=== PATIENT | male | born 1965 | race Caucasian/White ===

== ENCOUNTER 2019-04-20 05:09 | Emergency (ER) | payer SELFPAY ==
[2019-04-20 05:10] VITALS: BP 129/87; PULSE 68; RESP 16; TEMP 36.4; O2SAT 100; BMI 23.6
--- NOTE | 2019-04-20 05:24 | ED.VISSUMM ---
- ER Visit Summary Date of Service: 04/20/19 Chief Complaint: Back pain History of Present Illness: The patient is a 53 M who presents with back pain. This is been occurring intermittently for about 2 weeks but has been worse since yesterday. His pain is all isolated to the left lower back. He denies any numbness tingling weakness radiation to the legs fever abdominal pain urinary retention or fecal incontinence. No history of fall, trauma, injury. He takes Lyrica as a home medication but has not tried any other medications at home. He has tried ice and heat with mild relief. Physical Examination: Afebrile vitals unremarkable Moist mucous membranes Heart regular rate and rhythm Lungs are clear Abdomen soft nontender nondistended Patient has left lower paraspinal back tenderness and point tenderness over the SI joint Normal strength and sensation of the lower extremities with 5 out of 5 dorsiflexion, plantarflexion, EHL Test Results: Not indicated Emergency Department Course and Treatment: Given no trauma I do not believe x-rays will be of any benefit at this time. He was advised on supportive care. He was given a prescription for naproxen. He was also given a prescription for a short course of [place]. He was advised to follow-up as an outpatient. He understands to return for new or worsening symptoms. Patient discharged. Treatment Plan: [] Disposition: Discharge Impression: Lumbosacral strain This note was generated with [employer] dictation software. It may contain incorrect words, spelling, and punctuation that were not noted in review of the chart prior to signing ED Disposition - Plan for ED Patient: Referrals: Alphonse Roberts MD [Primary Care Provider] -
--- NOTE | 2019-04-20 05:27 | DCINST.ED_ITS ---
ED Disposition - Plan for ED Patient: Instructions: Back Sprain/Strain Prescriptions: Naproxen [Naprosyn] 500 mg PO BID #20 tab Prescription Printed Hydrocodone Bitart/Apap 5-325 [[place] 5MG-325MG] 1 tab PO Q6H PRN PRN 2 Days #8 tab PRN Reason: Pain Prescription Printed Referrals: Alphonse Roberts MD [Primary Care Provider] -
[2019-04-20] MEDS: HYDROcodone Bitartrate/Apap 5/325 Tablet PO (05:40)
[2019-04-20 05:49] VITALS: RESP 16
== END 2019-04-20 05:49 | disposition home or self-care (01) ==
LOC: ED 05:35
PROVIDERS: Emergency Provider Emergency Medicine; Family Provider Family Medicine; PCP Family Medicine
DX: S39.012A Strain of muscle, fascia and tendon of lower back, initial encounter (principal); X58.XXXA Exposure to other specified factors, initial encounter
CPT/HCPCS: 99283

== ENCOUNTER 2019-12-12 10:11 | Emergency (ER) | payer BC, SELFPAY ==
[2019-12-12 10:12] VITALS: BP 140/93; PULSE 85; RESP 17; TEMP 36.6; O2SAT 98; BMI 23.1
[2019-12-12] MEDS: Doxycycline 100 MG CAPSULE PO (11:00)
--- NOTE | 2019-12-12 12:22 | ED.VISSUMM ---
- ER Visit Summary Date of Service: 12/12/19 Chief Complaint: Left index finger pain and swelling History of Present Illness: The patient is a 54 M who presents with left index finger pain and swelling that is been getting worse over the past 5 days. Patient states he accidentally cut himself with a razor knife 5 days ago. Patient states the pain is been getting progressively worse. Patient admits to some purulent drainage from the wound. Patient describes his pain as throbbing. Patient states pain is over the distal phalanx of the left index finger. Patient states the pain improves when he massages his finger. Physical Examination: Vital signs are stable. Patient is afebrile. Patient is in no acute distress. Extremities are intact. There is tenderness, edema, and fluctuance over the pad of the distal phalanx of the left index finger. There is no open wound at the tip of the left index finger. There is some mild purulent drainage noted from this area. Sensation was intact to light touch in all digits. Capillary refill was less than 2 seconds in all digits. There is full range of motion of all digits. Skin is warm and dry. There is an impetigo type rash on his face and bilateral upper extremities. There is no active discharge or drainage. There are no vesicles or bullae noted. There is some honey crusting around the lesions. Emergency Department Course and Treatment: Patient was given a dose of doxycycline here. Patient was given a prescription for doxycycline. The left index finger was cleaned and anesthetized 1% lidocaine via digital block. A #11 blade was used to make a linear incision from the tip of the distal phalanx to the pad. There is mild amount of purulent drainage noted. The wound was probed. Loculations were broken up. The wound was irrigated. The wound was left open. Bacitracin dressing was applied. Patient was instructed to follow-up with his primary care physician in 3 to 5 days. Patient understood and was agreeable with the plan. All questions were answered. Disposition: Discharge home Impression: 1. Felon left index finger 2. Impetigo This note was generated with [employer] software. It may contain incorrect words, spelling, and punctuation that were not noted in review of the chart prior to signing ED Disposition - Plan for ED Patient: Disposition: Home or Assisted Living Diagnosis: Felon of finger of left hand, Impetigo Instructions: ABSCESS, Incision and Drainage Prescriptions: Doxycycline 100 mg PO BID #20 cap Prescription Printed Referrals: Alphonse Roberts MD [Primary Care Provider] - 3-5 Days
--- NOTE | 2019-12-12 12:50 | ED.RN ---
DISCHARGE INSTRUCTIONS GIVEN TO AND REVIEWED WITH PATIENT, PATIENT DENIES QUESTIONS OR CONCERNS AND VOICES UNDERSTANDING OF DISCHARGE INSTRUCTIONS. PT AMBULATES OUT OF ROOM WITHOUT DIFFICULTY.
== END 2019-12-12 12:51 | disposition home or self-care (01) ==
PROVIDERS: Emergency Provider Emergency Medicine; PCP Family Medicine
DX: L03.012 Cellulitis of left finger (principal); L01.00 Impetigo, unspecified; M79.7 Fibromyalgia; F17.200 Nicotine dependence, unspecified, uncomplicated
CPT/HCPCS: 26011; 10060; 99283

== ENCOUNTER 2020-04-27 08:53 | Emergency (ER) | payer BC, SELFPAY ==
[2020-04-27 08:53] VITALS: BP 119/78; PULSE 80; RESP 16; TEMP 36.4; O2SAT 98; BMI 22.5
--- NOTE | 2020-04-27 09:17 | ED.VIS.GEN ---
History of Present Illness Chief Complaint: Cellulitis Informant: Patient Onset: Days - 3 days Context: Gradual Onset Timing: Continuous Quality: Pain redness swelling Location: Right foot Current Severity: Severe Maximum Severity: Severe Worsened by: Movement and palpation Relieved by: Nothing Associated Symptoms: Denies Narrative: 54-year-old male presents with pain redness and swelling of his right foot that is been worsening over the last 3 days. He went to his primary yesterday who started him on Bactrim. He is taking 2 doses. He has not had any improvement. No fevers. No trauma. No numbness or tingling. No weakness. He denies history of gout. He states he is not a diabetic. He denies any other review of systems. Prior similar symptoms: No Recent Illness/Hospitalization: No Past Medical History - Allergies and Home Meds Allergies/Adverse Reactions: Allergies Penicillins Adverse Reaction (Verified 04/27/20 08:55) Vomiting sulfamethoxazole [From Bactrim] Adverse Reaction (Verified 04/27/20 08:55) Vomiting trimethoprim [From Bactrim] Adverse Reaction (Verified 04/27/20 08:55) Vomiting Primary Care Physician: Alphonse Roberts MD [Primary Care Provider] - Prior records reviewed: Yes Past Medical History: - - COPD Surgical History: - - hernia. tonisllectomy. Smoking Status: Current every day smoker Alcohol: Occasional Drugs: None Review of Systems All systems negative except as indicated General: Denies: Chills, Fever, Sweats Eyes: Denies: Visual changes - bilaterally, Diplopia ENT: Denies: Rhinorrhea, Sore throat Cardiovascular: Denies: Chest pain, Palpitations Respiratory: Denies: Dyspnea, Cough, Dyspnea on exertion Gastrointestinal: Denies: Abdominal pain, Nausea, Vomiting, Diarrhea, Melena, Hematochezia Genitourinary: Denies: Dysuria, Hematuria, Frequency Musculoskeletal: Reports: Swelling, Extremity Pain. Denies: Back pain Skin: Reports: Abscess. Denies: Rash, Abrasions, Wounds Neurological: Denies: Headache, Weakness, Numbness Physical Exam Vital Signs/Narrative: Vital Signs Temp Pulse Resp BP Pulse Ox 04/27/20 08:53 97.5 F L 80 16 119/78 98 Inital Vital Signs reviewed: Yes General: Well nourished, Well developed, No Acute Distress Head: Normocephalic, Atraumatic Eyes: Perrl, EOMI ENT: Moist mucous membranes, No rhinorrhea Neck: Supple, Nontender Cardiovascular: Regular rate, Regular rhythm, No murmurs Respiratory: No distress, CTA bilaterally, Chest nontender Abdomen: Soft, Nontender, Nondistended, Normal bowel sounds Back: Nontender, Normal Inspection Extremities: - - Patient has what appears to be an early abscess at the base of his right fifth toe. There is no fluctuance but it is indurated. He has swelling redness and warmth noted on the lateral aspect of his foot but it does not extend proximal to the mid foot. He has normal capillary refill and sensation of all 5 toes. He has normal active range of motion of all 5 toes. He is able to plantarflex and dorsiflex normally. DP and PT pulses are normal. Compartment of the leg is soft. There is no lymphatic streaking noted. There are no visualized ulcers between the toes or on the plantar aspect of the foot. Skin: Normal color, No rash Neurological: Alert, Oriented x3, Cranial nerves II-XII grossly intact, Normal Strength, Normal Sensation Psychological: Normal affect, Normal Mood Diagnostic/Tx/Re-eval Impressions Foot X-Ray 04/27/20 09:35 IMPRESSION: Soft tissue swelling. Electronically Signed: Kar Adam, at 9:59 EDT , Service support , 04/27/20 09:35 Xray Foot [Foot min 3 Views] [RAD] Stat Laboratory Results 04/27/20 04/27/20 09:26 09:26 WBC 9.5 RBC 3.83 L Hgb 12.6 L Hct 36.3 L MCV 94.8 H MCH 32.9 H MCHC 34.7 RDW Std Deviation 43.1 RDW Coeff of Annie 12.4 Plt Count 175 MPV 10.5 Immature Gran % (Auto) 0.400 Neut % (Auto) 81.6 H Lymph % (Auto) 8.2 L [place] % (Auto) 6.6 Eos % (Auto) 2.9 Baso % (Auto) 0.3 Absolute Neuts (auto) 7.8 H Absolute Lymphs (auto) 0.78 L Nucleated RBC % 0 ESR 6 Sodium 142 Potassium 3.8 Chloride 111 H Carbon Dioxide 30.0 Anion Gap 1 L BUN 17 Creatinine 0.82 Estim Creat Clear Calc 95.14 Est GFR (MDRD) Af Amer 125 Est GFR (MDRD) Non-Af 103 BUN/Creatinine Ratio 20.6 H Glucose 88 Calcium 8.2 L C-React Prot Ext Range 15.50 H - Medical Decision Making Patient's pain was treated with oxycodone. Laboratory work-up included CBC BMP were unremarkable. His CRP was 13. X-ray showed soft tissue swelling without acute finding. I discussed with patient at this time I feel he has an early abscess. We will start him on Keflex and he will continue his Bactrim. He was given a short course of Percocet. He was encouraged to have a 48-hour wound check with his doctor or return to the emergency department. At this time there is no sign of ulceration his x-ray did not show evidence of gout and we feel this is an early abscess with cellulitis. ED Disposition - Plan for ED Patient: Disposition: Home or Assisted Living Diagnosis: Cellulitis of fifth toe of right foot Instructions: Cellulitis Prescriptions: Cephalexin [Keflex] 500 mg PO Q6 #40 cap Prescription Printed Oxycodone HCl/Acetaminophen [Percocet 5/325] 1 tab PO Q6H PRN PRN 3 Days #12 tab PRN Reason: Pain Prescription Printed Referrals: Alphonse Roberts MD [Primary Care Provider] -
[2020-04-27 09:27] VITALS: BP 119/78; PULSE 80; RESP 16; TEMP 36.4; O2SAT 98
[2020-04-27] MEDS: oxyCODONE 5 MG Tablet PO (09:33)
--- NOTE | 2020-04-27 09:35 | RAD_ITS ---
STUDY: X-RAY - RIGHT FOOT CLINICAL: Male, 54 years old. INFECTION OF RIGHT FOOT, MORE ON LATERAL SIDE NEAR PINKY TOE TECHNIQUE: 3 view(s) of the foot. COMPARISON: None. FINDINGS: Normal talus, calcaneus, and tarsal bones. Normal visualized subtalar, talonavicular, calcaneocuboid, tarsal and tarsometatarsal articulations. Normal metatarsi. Normal metatarsophalangeal joint of the great toe. Normal tibial and fibular sesamoid bones. Normal interphalangeal joint of the great toe. Normal phalanges of the great toe. Normal second through fifth metatarsophalangeal joints. Normal interphalangeal joints and phalanges of the lesser toes. Soft tissue swelling. RAD/Foot min 3 Views IMPRESSION: Soft tissue swelling. Electronically Signed: Kar Medina, at 9:59 EDT , Service support ,
[2020-04-27 09:36] LABS: Erythrocyte Sedimentation Rate 6 mm/hr (0-20)
[2020-04-27 09:37] LABS: Absolute Lymphocyte Count 0.78 X10^3/uL (0.83-4.51); Absolute Neutrophil Count 7.8 X10^3/uL (2.0-7.7); Basophil# 0.03 X10^3/uL; Basophil% 0.3 % (0-1); Eosinophil# 0.28 X10^3/uL; Eosinophils% 2.9 % (0-5); Hematocrit 36.3 % (40-54); Hemoglobin 12.6 g/dL (13.0-16.5); Lymphocyte # 0.78 X10^3/ul (4.0); Lymphocyte % 8.2 % (19-41); Mean Corp Hgb Conc 34.7 g/dL (32-36); Mean Corpuscular Hgb 32.9 pg (27.0-32.0); Mean Corpuscular Volume 94.8 fL (80-94); Mean Platelet Vol. 10.5 fl (6.2-12.0); Monocyte# 0.63 X10^3/uL; Monocyte% 6.6 % (0-10); NRBC Flagged by Analyzer 0 % (0-5); Neutrophil # 7.77 X10^3/uL (2.7-7.7); Neutrophil % 81.6 % (47-70); Platelet Count 175 K/mm3 (150-450); RBC Distribution Width CV 12.4 % (11.6-14.6); RBC Distribution Width SD 43.1 fl (35.1-43.9); Red Blood Count 3.83 M/mm3 (4.6-6.2); White Blood Count 9.5 K/mm3 (4.4-11.0)
[2020-04-27 09:49] LABS: Anion Gap 1 (5-15); BUN 17 mg/dL (7-18); BUN/Creat Ratio 20.6 RATIO (10-20); Calcium,Total 8.2 mg/dL (8.5-10.1); Chloride 111 mmol/L (98-107); Creatinine, Serum 0.82 mg/dL (0.70-1.30); EST Glomerular Filtration Rate 103 mL/min (>60); Est Glom Filt Rate - Afr Amer 125 mL/min (>60); Estimated Creatinine Clearance 95.14 ml/min; Glucose 88 mg/dL (74-106); Potassium 3.8 mmol/L (3.5-5.1); Sodium Level 142 mmol/L (136-145)
[2020-04-27 10:13] VITALS: BP 126/76; PULSE 56; RESP 16; O2SAT 100
== END 2020-04-27 10:34 | disposition home or self-care (01) ==
PROVIDERS: Emergency Provider Physician Assistant Medical; PCP Family Medicine
DX: L03.031 Cellulitis of right toe (principal); J44.9 Chronic obstructive pulmonary disease, unspecified; F17.200 Nicotine dependence, unspecified, uncomplicated; Z88.0 Allergy status to penicillin; Z88.1 Allergy status to other antibiotic agents; Z88.2 Allergy status to sulfonamides
CPT/HCPCS: 73630; 80048; 85025; 85652; 86140; 99284; A4216

== ENCOUNTER 2020-04-29 12:24 | Inpatient (IN) | payer BC, SELFPAY ==
[2020-04-29] VITALS (7 sets, daily range): BP systolic 114–125; BP diastolic 64–76; PULSE 70–82; RESP 16–18; TEMP 36.7–37.1; O2SAT 97–99; BMI 22.5; BMI 22.6
--- NOTE | 2020-04-29 12:42 | RAD_ITS ---
STUDY: X-RAY - RIGHT FOOT CLINICAL: Male, 54 years old. infection, right foot TECHNIQUE: 3 view(s) of the foot. COMPARISON: 04/27/2020 FINDINGS: Normal talus, calcaneus, and tarsal bones. Normal visualized subtalar, talonavicular, calcaneocuboid, tarsal and tarsometatarsal articulations. Normal metatarsi. Normal metatarsophalangeal joint of the great toe. Normal tibial and fibular sesamoid bones. Normal interphalangeal joint of the great toe. Normal phalanges of the great toe. Normal second through fifth metatarsophalangeal joints. Normal interphalangeal joints and phalanges of the lesser toes. Soft tissue swelling fifth digit. No subcutaneous gas or radiodense foreign body. RAD/Foot min 3 Views IMPRESSION: Soft tissue swelling fifth digit Electronically Signed: Bryan Reid MD at 13:27 EDT , Service support ,
--- NOTE | 2020-04-29 12:45 | ED.DCSUM_ITS ---
- ER Visit Summary Date of Service: 04/29/20 Chief Complaint: Redness and swelling to right foot [] History of Present Illness: The patient is a 54 M [presents to the emergency department with redness and swelling to his foot that started about 5 days ago. Patient apparently was started on Bactrim about 5 days ago and then presented to the emergency department 2 days ago and started on Keflex as well. Patient states that yesterday he had an area over his right fifth toe that opened up and started draining purulent material. He has had some chills and sweats but no known fever. Patient continues to be concerned about his foot. He denies any trauma to his foot leading to this. Patient thinks that it looked somewhat bruised initially. Patient has otherwise no medical history. Patient is penicillin allergy.] Physical Examination: [HEENT-PERRLA, EOMI. Cranial nerves II through XII grossly intact. TMs clear. Mucous membranes moist. No adenopathy. Cardiovascular-regular rate and rhythm without murmur or ectopy Lungs-clear to auscultation, chest wall stable without crepitus or subcu emphysema Abdomen-normoactive bowel sounds, soft, nontender, no rebound or rigidity, no peritoneal signs. Extremities-intact ?4, normal range of motion, normal pulses. Right foot- patient has a diffusely swollen red foot. At the base of the fifth toe dorsally he has an area measuring approximately 2 cm in diameter that is opened up and draining some purulent debris. He is got surrounding erythema and cellulitis. Patient has diffuse tenderness over the lateral aspect of the plantar aspect of the foot and dorsal aspect of the foot. Neurovascularly intact.] Test Results: [] Emergency Department Course and Treatment: [] Treatment Plan: [] Disposition: [] Impression: [] This note was generated with [employer] dictation software. It may contain incorrect words, spelling, and punctuation that were not noted in review of the chart prior to signing ED Disposition - Plan for ED Patient: Referrals: Alphonse Roberts MD [Primary Care Provider] -
[2020-04-29 13:12] LABS: Absolute Lymphocyte Count 0.97 X10^3/uL (0.83-4.51); Absolute Neutrophil Count 3.2 X10^3/uL (2.0-7.7); Basophil# 0.03 X10^3/uL; Basophil% 0.6 % (0-1); Eosinophil# 0.17 X10^3/uL; Eosinophils% 3.5 % (0-5); Hematocrit 37.7 % (40-54); Lymphocyte # 0.97 X10^3/ul (4.0); Lymphocyte % 20.2 % (19-41); Mean Corp Hgb Conc 34.5 g/dL (32-36); Mean Corpuscular Hgb 32.7 pg (27.0-32.0); Mean Platelet Vol. 10.5 fl (6.2-12.0); Monocyte# 0.37 X10^3/uL; Monocyte% 7.7 % (0-10); NRBC Flagged by Analyzer 0 % (0-5); Neutrophil # 3.24 X10^3/uL (2.7-7.7); Neutrophil % 67.6 % (47-70); Platelet Count 198 K/mm3 (150-450); RBC Distribution Width CV 12.3 % (11.6-14.6); RBC Distribution Width SD 43.1 fl (35.1-43.9); Red Blood Count 3.97 M/mm3 (4.6-6.2); White Blood Count 4.8 K/mm3 (4.4-11.0)
[2020-04-29 13:22] LABS: Anion Gap 4 (5-15); BUN 14 mg/dL (7-18); BUN/Creat Ratio 15.1 RATIO (10-20); Calcium,Total 8.3 mg/dL (8.5-10.1); Chloride 113 mmol/L (98-107); Creatinine, Serum 0.93 mg/dL (0.70-1.30); EST Glomerular Filtration Rate 90 mL/min (>60); Est Glom Filt Rate - Afr Amer 109 mL/min (>60); Estimated Creatinine Clearance 83.89 ml/min; Glucose 111 mg/dL (74-106); Potassium 3.9 mmol/L (3.5-5.1); Sodium Level 144 mmol/L (136-145)
[2020-04-29 13:43] LABS: Lactic Acid 1.1 mmol/L (0.4-1.9)
--- NOTE | 2020-04-29 15:14 | HP.PCM_ITS ---
Problem List (1) Cellulitis of toe of right foot Status: Acute (2) Abscess of right foot Status: Acute History of Present Illness Date of Admission: 04/29/20 Chief Complaint: right foot little toe pain with redness and drainage The patient is a 54 year old M with complaints of right foot infection. Patient has failed outpatient doxycycline and keflex with worsening of symptoms. Patient states that the redness to his foot is getting worse and the redness is spreading. Patient denies N/F/V/C/CP/SOB. Patient states that he previously had a flesh eating bacteria to his finger that required surgery. Patient denies any trauma to the area. Patient reports 'junk' coming out of the toe in the last day or so where a wound developed. Past Medical History Past Medical History (Chronic Problems): Chronic Problems Tobacco abuse (Chronic) Allergies Penicillins Adverse Reaction (Verified 04/27/20 08:55) Vomiting Home Medications: Ambulatory Orders Medication Instructions Recorded Pregabalin [Lyrica] 300 mg PO BID PRN 11/07/15 Cephalexin [Keflex] 500 mg PO Q6 #40 cap 04/27/20 RX: Doxycycline 100 mg PO BID 04/27/20 Surgical History: - - hernia. tonisllectomy. Psychiatric History: No pertinent psych hx Smoking Status: Current every day smoker - *Family History Sibling History Items: Cancer - breast Maternal History Items: Diabetes - grandfather, No pertinent history Review of Systems Constitutional: Denies: Chills, Fever, Fatigue Cardiovascular: Reports: Edema - right foot. Denies: Chest Pain Respiratory: Denies: Cough, Shortness of Breath Musculoskeletal: Reports: Foot Pain - right foot Skin: Reports: Wounds - right 5th MPJ Neurological: Denies: Numbness, Tingling VTE Information - Inpt Only VTE Present on Admission: Yes VTE Mechan Device Prophylaxis: SCD's Patient Problems: Active and Suspected Problems Cellulitis of toe of right foot (Acute) Abscess of right foot (Acute) - Physical Exam Vitals/I&O's: Vital Signs Temp Pulse Resp BP Pulse Ox 98.2 F 70 18 124/76 H 99 04/29/20 14:45 04/29/20 14:45 04/29/20 14:45 04/29/20 14:45 04/29/20 14:45 Oxygen Delivery Method Room Air Weight: 65.317 kg Body Mass Index (BMI) 22.5 Intake and Output for Last 24 Hours 04/27/20 04/28/20 04/29/20 23:59 23:59 23:59 Intake Total 106 / 106 Balance 106 / 106 General: Alert, Oriented x3 HEENT: Atraumatic Oral: - - front teeth missing Lungs: Clear to auscultation Cardiovascular: Regular rate, Regular Rhythm Extremities: Tenderness, - - 2/4 DP and PT pulses b/l. Right 5th MPJ and digit noted fluctuant mass with some drainage and pain to palpation with surrounding erythema going up foot. Gross sensation intact. Muscles strength intact. Mar ked edema noted to right foot. Skin: Ulcer/ Wound - right 5th MPJ proximal phalanx dorsilateral. Purulent drainage, fluctant mass. Bedside I&D performed with evaculation of 1cc of purulent and sanginous drainage. Doesn't probe to bone. Pre procedure measurements was 0.2x0.2x0.2cm and post measured 1.0x0.5x0.8cm. Stab incision packed with 1/4 inch iodoform packing. surrounding erythema and edema. Pain to palpation, - Musculoskeletal: Tenderness Neurological: Neuro grossly intact, Sensory exam intact to light touch and pain Psych/Mental Status: Normal Affect Laboratory Results 04/29/20 13:00: WBC 4.8, RBC 3.97 L, Hgb 13.0, Hct 37.7 L, MCV 95.0 H, MCH 32.7 H, MCHC 34.5, RDW Std Deviation 43.1, RDW Coeff of Annie 12.3, Plt Count 198, MPV 10.5, Immature Gran % (Auto) 0.400, Neut % (Auto) 67.6, Lymph % (Auto) 20.2, [place] % (Auto) 7.7, Eos % (Auto) 3.5, Baso % (Auto) 0.6, Absolute Neuts (auto) 3.2, Absolute Lymphs (auto) 0.97, Nucleated RBC % 0 04/29/20 13:00: Sodium 144, Potassium 3.9, Chloride 113 H, Carbon Dioxide 27.0, Anion Gap 4 L, BUN 14, Creatinine 0.93, Estim Creat Clear Calc 83.89, Est GFR (MDRD) Af Amer 109, Est GFR (MDRD) Non-Af 90, BUN/Creatinine Ratio 15.1, Glucose 111 H, Calcium 8.3 L 04/29/20 13:00: Lactic Acid 1.1 Current Medications Acetaminophen (Tylenol) 650 mg PO Q6H PRN PRN PRN Reason: Pain Score 1-10/Temp > 100.7 F Albuterol Sulfate (Ventolin Aerosols) 2.5 mg INHALATION Q2H PRN PRN PRN Reason: Shortness of Breath/Wheezing Piperacillin Sod/Tazobactam (Sod 3.375 gm/ Sodium Chloride) 50 mls @ 12.5 mls/hr IV Q8 FABRICE Vancomycin IV Pharmacy to Dose (1 ea/ Sodium Chloride) 500 mls @ 250 mls/hr IV X1 PRN; Protocol PRN Reason: Rx to Dose Melatonin (Melatonin) 3 mg PO QHS PRN PRN PRN Reason: INSOMNIA Non-Formulary Medication (Pregabalin [Lyrica]) 300 mg PO BID PRN PRN Reason: Pain Score 4-10/10 Ondansetron HCl (Zofran) 4 mg IV Q8H PRN PRN PRN Reason: NAUSEA/VOMITING Oxycodone HCl (Oxyir) 5 mg PO Q4H PRN PRN PRN Reason: Pain Score 4-5/10 Assessment/Plan All Active Problems Cellulitis of toe of right foot (Acute) Abscess of right foot (Acute) right foot cellulitis right foot abscess Patient seen and examined bedside I&D was performed. Packed with iodoform gauze failed doxy and keflex with worsening symptoms Follow cultures continue IV abx ID consulted Will continue to see on floor. If not improving with IV antibiotics and after bedside I&D may need to go to OR for further clean out. Discussed this possibility with the patient. He understood and agreed to treatment plan. After examination of patient a fluctant mass was noted. It was discussed the need to drain the abscess in his foot/toe. All risks benefits alternatives and complications including but not limited to infection, delayed healing, nonhe aling, need for further surgery or amputation were discussed with the patient. No guarantees were given or implied. Patient signed consent and agreed to procedure. Patient was anesthetized with 10cc of 1% lidocaine plain in a proximal reverse wu block fashion. The site was prepped with Betadine. A stab incision was made with a #15 blade to make a sharp excisional nonselective debridement with removal of devitalized tissue. Purulent and sanguinous drainage was expressed. Approximately 1cc of purulent drainage expressed. Cultures of drainage were previously obtained by ED physician so no further cultures were obtained. Site was irrigated with copious amounts of normal sterile saline. Site was then packed with 1/4 inch iodoform packing and covered with tefla, 4x4, jennifer. Pre procedure measurements was 0.2x0.2x0.2cm and post measured 1.0x0.5x0.8cm. Patient tolerated procedure. Plan is for patient to be monitored on floor with continued IV antibiotics and wound care.
--- NOTE | 2020-04-29 16:37 | PCM.RX.CS ---
Consult Pharmacy has been consulted to manage selected antiobiotic: Vancomycin Type of Consult: New start Suspected Infection: Skin/Soft tissue, Other - ABSCESS Labs: Sodium 144 mmol/L (136-145) 04/29/20 13:00 Potassium 3.9 mmol/L (3.5-5.1) 04/29/20 13:00 Chloride 113 mmol/L (98-107) H 04/29/20 13:00 Carbon Dioxide 27.0 mmol/L (21.0-32.0) 04/29/20 13:00 Anion Gap 4 (5-15) L 04/29/20 13:00 BUN 14 mg/dL (7-18) 04/29/20 13:00 Creatinine 0.93 mg/dL (0.70-1.30) 04/29/20 13:00 Est GFR (MDRD) Af Amer 109 mL/min (>60) 04/29/20 13:00 Est GFR (MDRD) Non-Af 90 mL/min (>60) 04/29/20 13:00 BUN/Creatinine Ratio 15.1 RATIO (10-20) 04/29/20 13:00 Glucose 111 mg/dL (74-106) H 04/29/20 13:00 Estimated Creatinine Clearance: 84 ML/MIN Goal Trough: 15-20 mcg/mL Pharmacy Plan for Drug Dosing: NEW START IV VANCOMYCIN Consulting Physician: ARTHUR Indication: CELLULITIS/ABSCESS Goal Trough: 15-20 MG/DL SrCr: 0.93 (04/29) CrCl: 83.9 ML/MIN Comments: LOADING DOSE OF 1750MG X1 GIVEN 04/29 @ 1616 Vancomycin Dose: 1250MG Q12 STARTING 04/30 @ 0400 Pharmacy Service will continue to monitor and adjust dosing as required. Labs to be done on [date and time ordered]: 05/01/20 @ 8882
[2020-04-29] MEDS: oxyCODONE 5 MG Tablet PO (20:00)
[2020-04-29] MEDS: Acetaminophen 325 MG Tablet 650 MG PO (20:01)
[2020-04-29] MEDS: 0.9% Saline Lock 10 ML Syringe IV (22:37)
[2020-04-29] MEDS: Pregabalin 75 MG Capsule 300 MG PO (22:37)
[2020-04-30 02:00] VITALS: BP 111/70; PULSE 63; RESP 16; TEMP 36.6; O2SAT 98
[2020-04-30 06:02] LABS: Absolute Lymphocyte Count 1.45 X10^3/uL (0.83-4.51); Absolute Neutrophil Count 2.6 X10^3/uL (2.0-7.7); Basophil# 0.03 X10^3/uL; Basophil% 0.6 % (0-1); Eosinophil# 0.22 X10^3/uL; Eosinophils% 4.8 % (0-5); Hematocrit 35.5 % (40-54); Hemoglobin 12.3 g/dL (13.0-16.5); Lymphocyte # 1.45 X10^3/ul (4.0); Lymphocyte % 31.4 % (19-41); Mean Corp Hgb Conc 34.6 g/dL (32-36); Mean Corpuscular Hgb 32.5 pg (27.0-32.0); Mean Corpuscular Volume 93.9 fL (80-94); Mean Platelet Vol. 10.7 fl (6.2-12.0); Monocyte# 0.35 X10^3/uL; Monocyte% 7.6 % (0-10); NRBC Flagged by Analyzer 0 % (0-5); Neutrophil # 2.56 X10^3/uL (2.7-7.7); Neutrophil % 55.4 % (47-70); Platelet Count 172 K/mm3 (150-450); RBC Distribution Width CV 12.3 % (11.6-14.6); RBC Distribution Width SD 42.6 fl (35.1-43.9); Red Blood Count 3.78 M/mm3 (4.6-6.2); White Blood Count 4.6 K/mm3 (4.4-11.0)
[2020-04-30 08:57] VITALS: BP 135/82; PULSE 65; RESP 18; TEMP 36.7; O2SAT 100
[2020-04-30] MEDS: Pregabalin 75 MG Capsule 300 MG PO ×2 (09:06→22:18)
--- NOTE | 2020-04-30 11:00 | CASEMGMT ---
PARIS ORTIZ Face to Face with patient for initial transition planning/care coordination assessment. PARIS ORTIZ introduced self and role at [facility]. Patient lying in bed, alert and oriented. Patient willing to participate in assessment and is able to answer all questions appropriately. Care providers, pharmacy, and demographics verified. Patient states he has been living in his truck for the last year, SW updated regarding homelessness. Patient states he has no further needs or concerns at this time. CM to follow for discharge planning needs that may arise. PCP: Alejandra Specialists: none Preferred Pharmacy: [facility] Insurance: [place] Prescription Benefit: yes Living Will/HPOA: none LNOK: daughter Living Arrangements: Patient states he is living in his truck at this time. SW notified Transportation: self, daughter DME/HHC: Patient denies DME at this time. PARIS ORTIZ encouraged patient to talk with daughter about assistance at discharge. Disposition Plan: TBD Latricia PULIDO, RN, CM
--- NOTE | 2020-04-30 11:04 | MRI_ITS ---
STUDY: MRI RIGHT FOREFOOT WITHOUT CONTRAST REASON FOR EXAM: Redness, ulcer/infection of fifth toe for one week. TECHNIQUE: Standardized fat and water weighted pulse sequences were obtained in all 3 orthogonal planes. COMPARISON: Radiographs 04/29/2020. FINDINGS: There is mild arthrosis of the metatarsophalangeal joint of the hallux with mild chondral thinning (T1 sagittal image 6) and subchondral lesions of the first metatarsal head and base of the first proximal phalanx (inversion recovery sagittal images 5-8). Normal tibial and fibular sesamoids, with normal sesamoids-first metatarsal articulations. Normal interphalangeal joint of the hallux. Normal distal phalanx of the great toe. Normal medial and lateral heads of the flexor hallucis brevis tendons. Normal flexor and extensor hallucis longus tendons. Normal second through fifth metatarsophalangeal (MTP) joints. Normal interphalangeal joints of the second through fifth toes. There is bone edema of the proximal phalanx of the fifth toe (T1 sagittal images 22, 23) with corresponding decreased T1 bone marrow signal (T1 sagittal images 22, 23) suggestive of osteomyelitis. There is a small intermetatarsal neuroma of the second webspace (T1 series 4 image 20) measuring 0.3 cm in transverse dimension. Normal flexor and extensor tendons of the second through fifth toes. Normal visualized metatarsi. Normal intrinsic muscles of the forefoot. There is edema in the subcutis adipose space. There is no focal fluid collection to indicate soft tissue abscess. MRI/Lower Ext/No Jt/w/o IMPRESSION: Bone edema of the fifth proximal phalanx suggestive of osteomyelitis. Mild arthrosis of the first metatarsophalangeal joint with subchondral lesions. Small intermetatarsal neuroma of the second webspace. Electronically Signed: Juan Youssef MD at 12:45 EDT Tel , Service support ,
--- NOTE | 2020-04-30 11:05 | ART_ITS ---
Reason For Study: Ulcer Procedure A bilateral lower extremity continuous wave Doppler with analog waveform analysis,segmental pressures,and ankle brachial indexes without exercise. Left Segmental Pressures Left brachial= 104mmHg. Left posterior tibial artery = 127mmHg. Left dorsalis pedis artery = 122mmHg. The left ankle waveforms are triphasic. Right Segmental Pressures Right brachial= 113mmHg. Right posterior tibial artery = 141mmHg. Right dorsalis pedis artery = 127mmHg. The right ankle waveforms are triphasic. Indices The right ankle brachial index by the posterior tibial artery is 1.25. The right ankle brachial index by the dorsalis pedis is 1.12. The left ankle brachial index by the posterior tibial artery is 1.12. The left ankle brachial index by the dorsalis pedis is 1.08. Interpretation Summary Triphasic Doppler waveforms are noted at ankle level bilaterally. Pulse-volume recordings appear satisfactory at all levels bilaterally, including low-thigh, calf, ankle, and digital levels. Resting ankle-brachial indices are normal bilaterally. There is no evidence of significant arterial occlusive disease in the lower extremities bilaterally. Ordering Physician: Castillo Ramirez Referring Physician: Alphonse Roberts Performed By: Kait Gaona RDCS/RVT
--- NOTE | 2020-04-30 11:06 | PCM.PROGNOTE ---
Patient Problems: Active and Suspected Problems Cellulitis of toe of right foot (Acute) Abscess of right foot (Acute) Subjective: Patient was seen this morning for follow up on right foot infection s/p bedside I+D yesterday. He relates foot is feeling a little better, but still painful. No complaints of fever, chills, nausea, vomiting, diarrhea or any other complaints at this time. - Physical Exam Vitals/I&O's: Vital Signs Temp Pulse Resp BP Pulse Ox 98.0 F 65 18 135/82 H 100 04/30/20 08:57 04/30/20 08:57 04/30/20 08:57 04/30/20 08:57 04/30/20 08:57 Oxygen Delivery Method Room Air Weight: 65.31 kg Body Mass Index (BMI) 22.5 Intake and Output for Last 24 Hours 04/28/20 04/29/20 04/30/20 23:59 23:59 23:59 Intake Total 1391 / 1691 825 / 825 Balance 1391 / 1691 825 / 825 General: Alert, Oriented x3, Cooperative, No apparent distress Extremities: Capillary Refill Less than 3 Seconds, No Calf Tenderness, - - There is less cellulitis to the right foot, there is an open ulceration to the dorsal right 5th toe with surrounding erythema, and swelling to the toe, there is no maloder, no fluctuance, no crepitus, the ulceration is down to at least subcutaneous tissue and tendon, possibly to bone however full assessment difficult due to pain, there is some fibrotic tissue to the base, otherwise margins are viable; there is no streaking; there is no evidence of acute ischemia to the toe or rest of the foot, DP pulse is palpable, PT pulse difficult to palpate right foot. Microbiology Past 72 Hours 04/29/20 13:00 Wound Abcess - Leg Gram Stain - Final Laboratory Results 04/29/20 13:00: WBC 4.8, RBC 3.97 L, Hgb 13.0, Hct 37.7 L, MCV 95.0 H, MCH 32.7 H, MCHC 34.5, RDW Std Deviation 43.1, RDW Coeff of Annie 12.3, Plt Count 198, MPV 10.5, Immature Gran % (Auto) 0.400, Neut % (Auto) 67.6, Lymph % (Auto) 20.2, Barrow % (Auto) 7.7, Eos % (Auto) 3.5, Baso % (Auto) 0.6, Absolute Neuts (auto) 3.2, Absolute Lymphs (auto) 0.97, Nucleated RBC % 0 04/29/20 13:00: Sodium 144, Potassium 3.9, Chloride 113 H, Carbon Dioxide 27.0, Anion Gap 4 L, BUN 14, Creatinine 0.93, Estim Creat Clear Calc 83.89, Est GFR (MDRD) Af Amer 109, Est GFR (MDRD) Non-Af 90, BUN/Creatinine Ratio 15.1, Glucose 111 H, Calcium 8.3 L 04/29/20 13:00: Lactic Acid 1.1 04/30/20 05:45: WBC 4.6, RBC 3.78 L, Hgb 12.3 L, Hct 35.5 L, MCV 93.9, MCH 32.5 H, MCHC 34.6, RDW Std Deviation 42.6, RDW Coeff of Annie 12.3, Plt Count 172, MPV 10.7, Immature Gran % (Auto) 0.200, Neut % (Auto) 55.4, Lymph % (Auto) 31.4, Barrow % (Auto) 7.6, Eos % (Auto) 4.8, Baso % (Auto) 0.6, Absolute Neuts (auto) 2.6, Absolute Lymphs (auto) 1.45, Nucleated RBC % 0 Current Medications Acetaminophen (Tylenol) 650 mg PO Q6H PRN PRN PRN Reason: Pain Score 1-10/Temp > 100.7 F Last Admin: 04/29/20 20:01 Dose: 650 mg Documented by: Albuterol Sulfate (Ventolin Aerosols) 2.5 mg INHALATION Q2H PRN PRN PRN Reason: Shortness of Breath/Wheezing Piperacillin Sod/Tazobactam (Sod 3.375 gm/ Sodium Chloride) 50 mls @ 12.5 mls/hr IV Q8 FABRICE Last Admin: 04/30/20 06:53 Dose: 12.5 mls/hr Documented by: Vancomycin IV Pharmacy to Dose (1 ea/ Sodium Chloride) 500 mls @ 250 mls/hr IV X1 PRN; Protocol PRN Reason: Rx to Dose Sodium Chloride () 250 mls @ 15 mls/hr IV .[id number] PRN PRN Reason: Saline Flush Vancomycin HCl 1,250 mg/ (Sodium Chloride) 275 mls @ 167 mls/hr IV Q12H [facility] Last Infusion: 04/30/20 06:48 Dose: Infused Documented by: Melatonin (Melatonin) 3 mg PO QHS PRN PRN PRN Reason: INSOMNIA Nicotine (Nicoderm Cq (Pbkc)) 21 mg TRANSDERM. DAILY [facility] Last Admin: 04/30/20 09:07 Dose: 21 mg Documented by: Ondansetron HCl (Zofran) 4 mg IV Q8H PRN PRN PRN Reason: NAUSEA/VOMITING Oxycodone HCl (Oxyir) 5 mg PO Q4H PRN PRN PRN Reason: Pain Score 4-10/10 Last Admin: 04/29/20 20:00 Dose: 5 mg Documented by: Pregabalin (Lyrica) 300 mg PO BID [facility] Last Admin: 04/30/20 09:06 Dose: 300 mg Documented by: Sodium Chloride () 10 - 40 ml IV UD PRN PRN Reason: SALINE FLUSH Last Admin: 04/29/20 22:37 Dose: 10 ml Documented by: Medical Necessity - Tobacco Use Smoking Status: Current every day smoker Assessment/Plan All Active Problems Cellulitis of toe of right foot (Acute) Abscess of right foot (Acute) Abscess right 5th toe s/p bedside I+D on 04/29/2020 Ulceration right 5th toe down to tendon Right foot cellulitis Tobacco Dependence Re-evaluation performed. WBC normal. Patient afebrile. Right foot - appears there has been improvement compared to yesterday, 5th toe still painful with erythema, ordered MRI for further evaluation and to assess for possible bone involvement. Noninvasive lower extremity arterial studies were ordered as patient is a smoker/tobacco user. Follow cultures, finals pending, there is noted gram positive cocci in clusters. Patient on Vanc/Zosyn, ID/Dr. Llamas has been consulted. Site cleansed w/ betadine soln, applied gauze, kerlix and reece dressing. Patient understands further debridement may be needed, we will get MRI first as noted above. Recommended smoking/tobacco cessation to optimize foot/ankle health. DVT Prophylaxis: SCDs. Patient is on Lyrica for Fibromyalgia.
--- NOTE | 2020-04-30 12:54 | PCM.CONS.GEN ---
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 Patient had infection that started as a bump which got ulcerated with purulent drainage and is spreading proximally for about 1 week. Patient also had similar infection in the finger that required surgery. Denies fever or chills. 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 Patient also has paresthesia, numbness and tingling on right leg and is on home medication Lyrica which she occasionally takes. X-ray of the foot showed soft tissue swelling fifth digit. Lower extremity MRI shows fifth proximal phalanx bone edema suggestive of osteomyelitis. The patient had incision and drainage on 04/29 and started on broad-spectrum IV antibiotic vancomycin and Zosyn. Family history: His father of first CA at age 49. Mother also with history of chronic lung disease and peripheral arterial disease and perhaps had amputation as per history Past Medical History Past Medical History (Chronic Problems): Chronic Problems Raynaud's disease (Chronic) Tobacco abuse (Chronic) Allergies Penicillins Adverse Reaction (Verified 04/27/20 08:55) Vomiting Home Medications: Ambulatory Orders Medication Instructions Recorded Pregabalin [Lyrica] 300 mg PO BID PRN 11/07/15 Cephalexin [Keflex] 500 mg PO Q6 #40 cap 04/27/20 Doxycycline 100 mg PO BID 04/27/20 Surgical History: - - hernia. tonisllectomy. Psychiatric History: No pertinent psych hx Smoking Status: Current every day smoker - *Family History Maternal History Items: Diabetes - grandfather, No pertinent history Sibling History Items: Cancer - breast Review of Systems Constitutional: Denies: Chills, Fever, Weight Change HEENT: Denies: Head Aches, Sinus Congestion, Sinus Drainage Cardiovascular: Denies: Chest Pain, Palpitations Respiratory: Denies: Cough, Shortness of breath at rest, Sputum production Gastrointestinal: Denies: Abdominal Pain, Nausea, Vomiting Genitourinary: Denies: Dysuria, Frequency Musculoskeletal: Denies: Joint Pain, Joint Tenderness Skin: Denies: Rash, Wounds Neurological: Reports: Numbness, Tingling. Denies: Focal weakness Psychiatric: Reports: Anxiety. Denies: Depression, Homicidal Ideations, Suicidal Ideations Hematologic/ Lymphatic: Denies: Easy Bruising, Easy Bleeding Patient Problems: Active and Suspected Problems Cellulitis of toe of right foot (Acute) Abscess of right foot (Acute) - Physical Exam Vitals/I&O's: Vital Signs Temp Pulse Resp BP Pulse Ox 98.0 F 65 18 135/82 H 100 04/30/20 08:57 04/30/20 08:57 04/30/20 08:57 04/30/20 08:57 04/30/20 08:57 Oxygen Delivery Method Room Air Weight: 143 lb 15.742 oz Body Mass Index (BMI) 22.5 Intake and Output for Last 24 Hours 04/28/20 04/29/20 04/30/20 23:59 23:59 23:59 Intake Total 1391 / 1691 1415 / 1415 Balance 1391 / 1691 1415 / 1415 General: Alert, Oriented x3, Cooperative HEENT: Atraumatic, PERRLA, EOMI, Normocephalic Oral: No Gingival or Mucosal Lesions/ Ulcerations, Dry Mucosa Neck: Supple, No JVD, Negative Carotid Bruits Lungs: Clear to auscultation, Normal air movement, No rhonchi, No wheeze, No rales Cardiovascular: Regular rate, Regular Rhythm, Normal S1, Normal S2, No murmurs Abdomen: Bowel Sounds Present, Soft, Non Tender, Non-Distended Extremities: No edema, Capillary Refill Less than 3 Seconds Skin: Ulcer/ Wound - Right fifth toe ulcer with surrounding cellulitis, - - Multiple small nodules, subcutaneous in both upper forearms. Musculoskeletal: No Tenderness to Palpation of Joints or Extremities, Arthritic Changes - Of right first toe Neurological: Cranial nerves II-XII grossly intact, Deep Tendon Reflexes 2+/4 and Symmetrical, Neuro grossly intact Psych/Mental Status: Normal Affect, Appropriate Microbiology Past 72 Hours 04/29/20 13:00 Wound Abcess - Leg Gram Stain - Final 04/29/20 13:00 Wound Abcess - Leg Wound Culture - Preliminary Staphylococcus aureus Laboratory Results 04/29/20 13:00: WBC 4.8, RBC 3.97 L, Hgb 13.0, Hct 37.7 L, MCV 95.0 H, MCH 32.7 H, MCHC 34.5, RDW Std Deviation 43.1, RDW Coeff of Annie 12.3, Plt Count 198, MPV 10.5, Immature Gran % (Auto) 0.400, Neut % (Auto) 67.6, Lymph % (Auto) 20.2, Frio % (Auto) 7.7, Eos % (Auto) 3.5, Baso % (Auto) 0.6, Absolute Neuts (auto) 3.2, Absolute Lymphs (auto) 0.97, Nucleated RBC % 0 04/29/20 13:00: Sodium 144, Potassium 3.9, Chloride 113 H, Carbon Dioxide 27.0, Anion Gap 4 L, BUN 14, Creatinine 0.93, Estim Creat Clear Calc 83.89, Est GFR (MDRD) Af Amer 109, Est GFR (MDRD) Non-Af 90, BUN/Creatinine Ratio 15.1, Glucose 111 H, Calcium 8.3 L 04/29/20 13:00: Lactic Acid 1.1 04/30/20 05:45: WBC 4.6, RBC 3.78 L, Hgb 12.3 L, Hct 35.5 L, MCV 93.9, MCH 32.5 H, MCHC 34.6, RDW Std Deviation 42.6, RDW Coeff of Annie 12.3, Plt Count 172, MPV 10.7, Immature Gran % (Auto) 0.200, Neut % (Auto) 55.4, Lymph % (Auto) 31.4, Frio % (Auto) 7.6, Eos % (Auto) 4.8, Baso % (Auto) 0.6, Absolute Neuts (auto) 2.6, Absolute Lymphs (auto) 1.45, Nucleated RBC % 0 Current Medications Acetaminophen (Tylenol) 650 mg PO Q6H PRN PRN PRN Reason: Pain Score 1-10/Temp > 100.7 F Last Admin: 04/29/20 20:01 Dose: 650 mg Documented by: Albuterol Sulfate (Ventolin Aerosols) 2.5 mg INHALATION Q2H PRN PRN PRN Reason: Shortness of Breath/Wheezing Piperacillin Sod/Tazobactam (Sod 3.375 gm/ Sodium Chloride) 50 mls @ 12.5 mls/hr IV Q8 [facility] Last Infusion: 04/30/20 10:53 Dose: Infused Documented by: Vancomycin IV Pharmacy to Dose (1 ea/ Sodium Chloride) 500 mls @ 250 mls/hr IV X1 PRN; Protocol PRN Reason: Rx to Dose Sodium Chloride () 250 mls @ 15 mls/hr IV .[id number] PRN PRN Reason: Saline Flush Vancomycin HCl 1,250 mg/ (Sodium Chloride) 275 mls @ 167 mls/hr IV Q12H [facility] Last Infusion: 04/30/20 06:48 Dose: Infused Documented by: Melatonin (Melatonin) 3 mg PO QHS PRN PRN PRN Reason: INSOMNIA Nicotine (Nicoderm Cq (Pbkc)) 21 mg TRANSDERM. DAILY [facility] Last Admin: 04/30/20 09:07 Dose: 21 mg Documented by: Ondansetron HCl (Zofran) 4 mg IV Q8H PRN PRN PRN Reason: NAUSEA/VOMITING Oxycodone HCl (Oxyir) 5 mg PO Q4H PRN PRN PRN Reason: Pain Score 4-10/10 Last Admin: 04/29/20 20:00 Dose: 5 mg Documented by: Pregabalin (Lyrica) 300 mg PO BID [facility] Last Admin: 04/30/20 09:06 Dose: 300 mg Documented by: Sodium Chloride () 10 - 40 ml IV UD PRN PRN Reason: SALINE FLUSH Last Admin: 04/29/20 22:37 Dose: 10 ml Documented by: Assessment/Plan All Active Problems Cellulitis of toe of right foot (Acute) Abscess of right foot (Acute) 54-year-old gentleman with history of chronic smoking and rainouts disease admitted with right fifth toes ulcer with surrounding abscess and cellulitis. 1. Right fifth toe ulcer with abscess status post incision and drainage on 04/29/2020: [facility] Patient had lower extremity MRI which showed right fifth proximal phalanx osteomyelitis. Mild arthrosis of first MTP joint arthrosis and a small intermetatarsal neuroma of second webspace. ID has been consulted. Currently patient is on vancomycin and Zosyn. Patient failed outpatient doxycycline and Keflex. Prelim Gram stain of wound culture shows staph aureus 3+. MRSA nasal screen ordered. 2. 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 Aspirin 81 mg p.o. daily started. Lipid profile ordered for tomorrow a.m. 3. Lab abnormalities mild hyperglycemia, glucose 111: A1c ordered for tomorrow a.m. mild microcytosis, MCV 95. Patient drinks alcohol very rarely once in a month. B12 and folic acid ordered. No anemia, hemoglobin 13/37.7. 4. DVT prophylaxis: Lovenox 40 mg subcu daily. Discontinue if platelet count drops less than 50,000 or hemoglobin less than 8 g% Clinical Impression(s) from Imaging Studies Foot X-Ray 04/29/20 12:42 IMPRESSION: Soft tissue swelling fifth digit Lower Extremity MRI 04/30/20 11:04 IMPRESSION: Bone edema of the fifth proximal phalanx suggestive of osteomyelitis. Mild arthrosis of the first metatarsophalangeal joint with subchondral lesions. Small intermetatarsal neuroma of the second webspace. Inpatient E&M: 08622 Init Hosp L3
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
--- NOTE | 2020-04-30 13:49 | EKG12_ITS ---
Test Reason : Blood Pressure : / mmHG Vent. Rate : 073 BPM Atrial Rate : 073 BPM P-R Int : 120 ms QRS Dur : 082 ms QT Int : 356 ms P-R-T Axes : 074 054 023 degrees QTc Int : 392 ms Poor data quality, interpretation may be adversely affected Normal sinus rhythm Septal infarct , age undetermined Abnormal ECG When compared with ECG of 20-DEC-2013 09:45, Septal infarct is now Present Confirmed by ASHLEY MCCRAY ([id number]), commissioning editor JADEN MAURER ([id number]) on 05/04/2020 10:41:07 AM Referred By: Kate GIBSON Confirmed By:ASHLEY MCCRAY
[2020-04-30 14:09] VITALS: BP 135/81; PULSE 70; RESP 18; TEMP 36.8; O2SAT 98
--- NOTE | 2020-04-30 16:27 | CON.PCM_ITS ---
Problem List (1) Cellulitis of toe of right foot Status: Acute Reason for Consult: toe osteo Consulted by: Dr. Cerna History of Present Illness: The patient is a 54 year old M with several days of R toe redness, pain, swelling, and drainage. No fever or chills. No inciting event, no clear exposure history of contamination or animal exposure. He is homeless. Was started on doxy/keflex for 1-2 days without improvement. Came to ED, had I&D done by Dr. Cerna. Wound cx with staph aureus. Feeling ok, some soreness. No n/v/d. MRI done. Full ROS performed and neg except as noted above. Reports nausea with PCN, no issues with amoxicillin. - Medical History Past Medical History (Chronic Problems): Chronic Problems Raynaud's disease (Chronic) Tobacco abuse (Chronic) Allergies/Adverse Reactions: Allergies Penicillins Adverse Reaction (Verified 04/27/20 08:55) Vomiting Home Medications: Ambulatory Orders Medication Instructions Recorded Pregabalin [Lyrica] 300 mg PO BID PRN 11/07/15 Cephalexin [Keflex] 500 mg PO Q6 #40 cap 04/27/20 Doxycycline 100 mg PO BID 04/27/20 - Social History SMOKING STATUS:: Current every day smoker Vital Signs Temp Pulse Resp BP Pulse Ox 98.3 F 70 18 135/81 H 98 04/30/20 14:09 04/30/20 14:09 04/30/20 14:09 04/30/20 14:09 04/30/20 14:09 Oxygen Delivery Method Room Air Weight: 65.31 kg Body Mass Index (BMI) 22.5 Microbiology Past 72 Hours 04/29/20 13:00 Gram Stain - Final Wound Abcess - Leg Wound Culture - Preliminary Staphylococcus aureus Laboratory Tests Past 24 Hrs 04/30/20 05:45 WBC 4.6 RBC 3.78 L Hgb 12.3 L Hct 35.5 L MCV 93.9 MCH 32.5 H MCHC 34.6 RDW Std Deviation 42.6 RDW Coeff of Annie 12.3 Plt Count 172 MPV 10.7 Immature Gran % (Auto) 0.200 Neut % (Auto) 55.4 Lymph % (Auto) 31.4 [place] % (Auto) 7.6 Eos % (Auto) 4.8 Baso % (Auto) 0.6 Absolute Neuts (auto) 2.6 Absolute Lymphs (auto) 1.45 Nucleated RBC % 0 - Other Studies Radiology: [] reviewed Other Studies: [] Route of nutrition/ use of supplements: [] Nutritional Intake: [] IV Site: [] Lopez Catheter: [] - Physical Exam General: Alert, Oriented x3, Cooperative, No apparent distress HEENT: Atraumatic, PERRLA, EOMI Neck: Supple, No Nodes Lungs: Clear to auscultation, Normal air movement Cardiovascular: Regular rate, Regular Rhythm Abdomen: Soft, Non Tender, Non-Distended Extremities: No edema Skin: Ulcer/ Wound - foot wrapped IV Site: Peripheral, without redness Musculoskeletal: No Tenderness to Palpation of Joints or Extremities Neurological: Cranial nerves II-XII grossly intact - Assessment/Plan Antibiotics: [] Assessment/Plan: [] Active and Suspected Problems Cellulitis of toe of right foot (Acute) Abscess of right foot (Acute) Toe osteo - cx with staph aureus. MRI with osteo. Given living situation, amputation probably would give him the best chance of cure and nursing home healing. May be a candidate for po abx if amp is not done, but would need 6 weeks of treatment. Cont vanc, zosyn for now. Will follow, d/w Dr. Ramirez
[2020-04-30] MEDS: Aspirin E.C. 81 MG Tablet PO (17:03)
[2020-04-30] MEDS: Enoxaparin 40 MG/0.4 ML Syringe SC (17:03)
[2020-04-30 18:20] LABS: M R Staph aureus DNA By PCR Negative (Negative); Probe Check PASS; Specimen Processing Control PASS
[2020-04-30 20:33] VITALS: BP 125/78; PULSE 77; RESP 18; TEMP 36.4; O2SAT 98
[2020-04-30] MEDS: Acetaminophen 325 MG Tablet 650 MG PO (20:38)
[2020-04-30] MEDS: oxyCODONE 5 MG Tablet PO (20:38)
[2020-05-01] VITALS (9 sets, daily range): BP systolic 93–142; BP diastolic 55–98; PULSE 60–88; RESP 16–18; TEMP 36.6–37; O2SAT 96–100; BMI 22.5
[2020-05-01 04:43] LABS: Vancomycin, Trough Level 10.1 ug/mL (5.0-15.0)
--- NOTE | 2020-05-01 04:59 | PCM.RX.CS ---
Consult Pharmacy has been consulted to manage selected antiobiotic: Vancomycin Type of Consult: Follow-up Suspected Infection: Skin/Soft tissue Prior Doses of Antibiotics Received/Current Regimen: Medications Vancomycin HCl 2,000 mg/ (Sodium Chloride) 540 mls @ 250 mls/hr IV Q12H FABRICE Vancomycin HCl 1,250 mg/ (Sodium Chloride) 275 mls @ 167 mls/hr IV Q12H FABRICE Stop: 05/01/20 05:39 Last Admin: 05/01/20 03:59 Dose: 167 mls/hr Labs: Sodium 144 mmol/L (136-145) 04/29/20 13:00 Potassium 3.9 mmol/L (3.5-5.1) 04/29/20 13:00 Chloride 113 mmol/L (98-107) H 04/29/20 13:00 Carbon Dioxide 27.0 mmol/L (21.0-32.0) 04/29/20 13:00 Anion Gap 4 (5-15) L 04/29/20 13:00 BUN 14 mg/dL (7-18) 04/29/20 13:00 Creatinine 0.93 mg/dL (0.70-1.30) 04/29/20 13:00 Est GFR (MDRD) Af Amer 109 mL/min (>60) 04/29/20 13:00 Est GFR (MDRD) Non-Af 90 mL/min (>60) 04/29/20 13:00 BUN/Creatinine Ratio 15.1 RATIO (10-20) 04/29/20 13:00 Glucose 111 mg/dL (74-106) H 04/29/20 13:00 Vancomycin Trough 10.1 ug/mL (5.0-15.0) 05/01/20 03:30 Microbiology: Microbiology 04/29/20 13:00 Wound Abcess - Leg Gram Stain - Final 04/29/20 13:00 Wound Abcess - Leg Wound Culture - Preliminary Staphylococcus aureus Weight used for dosin.3 kg Estimated Creatinine Clearance: 83.9 Goal Trough: 15-20 mcg/mL Pharmacy Plan for Drug Dosing: Trough level of 10.1 was below target range of 15-20. Will increase dose to 2000mg q12h and re-draw trough prior to 4th dose of new regimen. Pharmacy Service will continue to monitor and adjust dosing as required. Follow-Up Labs: Trough Vancomycin Labs to be done on [date and time ordered]: 05/03/20 @6101
[2020-05-01 05:22] LABS: AST(SGOT) 10 U/L (15-37); Alanine Aminotransfer ALT/SGPT 15 U/L (16-61); Albumin, Serum 2.8 g/dL (3.2-5.0); Alkaline Phosphatase 88 U/L (45-117); Bilirubin, Direct 0.07 mg/dL (0.00-0.30); Cholesterol 109 mg/dL (200); Globulin 2.9 g/dL (2.2-4.2); High Density Lipoprotein 35 mg/dL; Protein, Total 5.7 g/dL (6.4-8.2); Triglycerides 61 mg/dL; Very Low Density Lipoprotein 12 mg/dL (5-40)
--- NOTE | 2020-05-01 06:00 | EKG12_ITS ---
Test Reason : PRE-OP Blood Pressure : / mmHG Vent. Rate : 060 BPM Atrial Rate : 060 BPM P-R Int : 132 ms QRS Dur : 094 ms QT Int : 390 ms P-R-T Axes : 069 040 028 degrees QTc Int : 390 ms Normal sinus rhythm Normal ECG When compared with ECG of 20-DEC-2013 09:45, Vent. rate has decreased BY 34 BPM Confirmed by ASHLEY MCCRAY ([id number]), editor at large JADEN MAURER ([id number]) on 05/04/2020 10:41:17 AM Referred By: ARTHUR Confirmed By:ASHLEY MCCRAY
[2020-05-01 07:52] LABS: Hemoglobin A1c 5.3 % (3.8-5.6)
--- NOTE | 2020-05-01 08:13 | PN_ITS ---
Patient Problems: Active and Suspected Problems Cellulitis of toe of right foot (Acute) Abscess of right foot (Acute) Subjective: Patient with no new complaints, relates right 5th toe is painful. He relates he talked it over with his daughter and would like to proceed with amputation of the right 5th toe. - Physical Exam Vitals/I&O's: Vital Signs Temp Pulse Resp BP Pulse Ox 97.9 F 64 16 113/98 H 99 05/01/20 02:20 05/01/20 02:20 05/01/20 02:20 05/01/20 02:20 05/01/20 02:20 Oxygen Delivery Method Room Air Weight: 65.31 kg Body Mass Index (BMI) 22.5 Intake and Output for Last 24 Hours 04/29/20 04/30/20 05/01/20 23:59 23:59 23:59 Intake Total 1391 / 1691 2220.25 / 2470.25 603.75 / 603.75 Balance 1391 / 1691 2220.25 / 2470.25 603.75 / 603.75 General: Alert, Oriented x3, Cooperative, No apparent distress Extremities: Capillary Refill Less than 3 Seconds, No Calf Tenderness, - - There is an open ulceration to the dorsal right 5th toe with surrounding erythema, and swelling to the toe, there is no maloder, no fluctuance, no crepitus, the ulceration is down to at least subcutaneous tissue and tendon, possibly to bone however full assessment difficult due to pain, there is some fibrotic tissue to the base, otherwise margins are viable; there is no streaking; there is no evidence of acute ischemia to the toe or rest of the foot, DP pulse is palpable, PT pulse difficult to palpate right foot. Microbiology Past 72 Hours 04/29/20 13:00 Wound Abcess - Leg Gram Stain - Final 04/29/20 13:00 Wound Abcess - Leg Wound Culture - Final Meth. resistant Staph. aureus Laboratory Results 04/30/20 16:20: MRSA (PCR) Negative 05/01/20 03:30: Vancomycin Trough 10.1 05/01/20 03:30: Total Bilirubin 0.20, Direct Bilirubin 0.07, AST 10 L, ALT 15 L, Alkaline Phosphatase 88, Total Protein 5.7 L, Albumin 2.8 L, Globulin 2.9, Triglycerides 61, Cholesterol 109, LDL Cholesterol 62, VLDL Cholesterol 12, HDL Cholesterol 35 L, Folate 9.10 05/01/20 03:30: Hemoglobin A1c 5.3 05/01/20 03:30: Vitamin B12 Pending Current Medications Acetaminophen (Tylenol) 650 mg PO Q6H PRN PRN PRN Reason: Pain Score 1-10/Temp > 100.7 F Last Admin: 04/30/20 20:38 Dose: 650 mg Documented by: Albuterol Sulfate (Ventolin Aerosols) 2.5 mg INHALATION Q2H PRN PRN PRN Reason: Shortness of Breath/Wheezing Aspirin (Ecotrin) 81 mg PO DAILY@0800 [facility] Enoxaparin Sodium (Lovenox) 40 mg SC DAILY [facility] Last Admin: 04/30/20 17:03 Dose: 40 mg Documented by: Piperacillin Sod/Tazobactam (Sod 3.375 gm/ Sodium Chloride) 50 mls @ 12.5 mls/hr IV Q8 [facility] Last Admin: 05/01/20 05:53 Dose: 12.5 mls/hr Documented by: Vancomycin IV Pharmacy to Dose (1 ea/ Sodium Chloride) 500 mls @ 250 mls/hr IV X1 PRN; Protocol PRN Reason: Rx to Dose Sodium Chloride () 250 mls @ 15 mls/hr IV .[id number] PRN PRN Reason: Saline Flush Last Infusion: 05/01/20 05:53 Dose: 0 mls/hr Documented by: Vancomycin HCl 2,000 mg/ (Sodium Chloride) 540 mls @ 250 mls/hr IV Q12H [facility] Melatonin (Melatonin) 3 mg PO QHS PRN PRN PRN Reason: INSOMNIA Nicotine (Nicoderm Cq (Pbkc)) 21 mg TRANSDERM. DAILY [facility] Last Admin: 04/30/20 09:07 Dose: 21 mg Documented by: Nutritional Formula (Lactose Free) (Ensure Enlive) 120 ml PO 4X/DAY [facility] Last Admin: 04/30/20 20:38 Dose: 120 ml Documented by: Ondansetron HCl (Zofran) 4 mg IV Q8H PRN PRN PRN Reason: NAUSEA/VOMITING Oxycodone HCl (Oxyir) 5 mg PO Q4H PRN PRN PRN Reason: Pain Score 4-10/10 Last Admin: 04/30/20 20:38 Dose: 5 mg Documented by: Pregabalin (Lyrica) 300 mg PO BID [facility]RICE Last Admin: 04/30/20 22:18 Dose: 300 mg Documented by: Sodium Chloride () 10 - 40 ml IV UD PRN PRN Reason: SALINE FLUSH Last Admin: 04/29/20 22:37 Dose: 10 ml Documented by: Medical Necessity - Tobacco Use Smoking Status: Current every day smoker Assessment/Plan All Active Problems Cellulitis of toe of right foot (Acute) Abscess of right foot (Acute) Abscess right 5th toe s/p bedside I+D on 04/29/2020 Ulceration right 5th toe down to tendon Osteomyelitis right 5th toe Right foot cellulitis Tobacco Dependence Re-evaluation performed. WBC normal. Patient afebrile. Reviewed MRI findings, there is noted evidence of osteomyelitis to the 5th toe proximal phalanx. We discussed the options, salvage of the toe vs amputation - reviewed the possible benefits vs risks, goals, expectations and estimated healing time of each. Patient requested I speak with his daughter and I did review this with her as well. He relates they have decided to proceed with the amputation. Follow cultures, finals pending, there is noted staph aureus. Patient on Vanc/Zosyn, ID/Dr. Llamas following. Recommended smoking/tobacco cessation to optimize foot/ankle health. LEAS have been ordered and are pending. DVT Prophylaxis: SCDs. Patient is on Lyrica for Fibromyalgia.
[2020-05-01] MEDS: oxyCODONE 5 MG Tablet PO ×3 (08:58→19:31)
[2020-05-01] MEDS: Pregabalin 75 MG Capsule 300 MG PO ×2 (09:03→21:20)
--- NOTE | 2020-05-01 10:03 | PN.ID_ITS ---
Patient Problems: Active and Suspected Problems Cellulitis of toe of right foot (Acute) Abscess of right foot (Acute) Subjective: Feeling ok, OR today, no fever, no n/v/d. - Physical Exam Vitals/I&O's: Vital Signs Temp Pulse Resp BP Pulse Ox 97.9 F 64 16 113/98 H 99 05/01/20 02:20 05/01/20 02:20 05/01/20 02:20 05/01/20 02:20 05/01/20 02:20 Oxygen Delivery Method Room Air Weight: 65.31 kg Body Mass Index (BMI) 22.5 Intake and Output for Last 24 Hours 04/29/20 04/30/20 05/01/20 23:59 23:59 23:59 Intake Total 1391 / 1691 2220.25 / 2470.25 653.75 / 653.75 Balance 1391 / 1691 2220.25 / 2470.25 653.75 / 653.75 General: Alert, Cooperative, No apparent distress Lungs: Clear to auscultation, Normal air movement Cardiovascular: Regular rate, Regular Rhythm Abdomen: Soft, Non Tender, Non-Distended Skin: Ulcer/ Wound - foot wrapped Microbiology Past 72 Hours 04/29/20 13:00 Wound Abcess - Leg Gram Stain - Final 04/29/20 13:00 Wound Abcess - Leg Wound Culture - Final Meth. resistant Staph. aureus Laboratory Results 04/30/20 16:20: MRSA (PCR) Negative 05/01/20 03:30: Vancomycin Trough 10.1 05/01/20 03:30: Total Bilirubin 0.20, Direct Bilirubin 0.07, AST 10 L, ALT 15 L, Alkaline Phosphatase 88, Total Protein 5.7 L, Albumin 2.8 L, Globulin 2.9, Triglycerides 61, Cholesterol 109, LDL Cholesterol 62, VLDL Cholesterol 12, HDL Cholesterol 35 L, Folate 9.10 05/01/20 03:30: Hemoglobin A1c 5.3 05/01/20 03:30: Vitamin B12 Pending Current Medications Acetaminophen (Tylenol) 650 mg PO Q6H PRN PRN PRN Reason: Pain Score 1-10/Temp > 100.7 F Last Admin: 04/30/20 20:38 Dose: 650 mg Documented by: Albuterol Sulfate (Ventolin Aerosols) 2.5 mg INHALATION Q2H PRN PRN PRN Reason: Shortness of Breath/Wheezing Aspirin (Ecotrin) 81 mg PO DAILY@0800 [facility] Last Admin: 05/01/20 09:03 Dose: Not Given Documented by: Enoxaparin Sodium (Lovenox) 40 mg SC DAILY [facility] Last Admin: 05/01/20 08:48 Dose: Not Given Documented by: Piperacillin Sod/Tazobactam (Sod 3.375 gm/ Sodium Chloride) 50 mls @ 12.5 mls/h r IV Q8 [facility] Last Infusion: 05/01/20 10:02 Dose: Infused Documented by: Vancomycin IV Pharmacy to Dose (1 ea/ Sodium Chloride) 500 mls @ 250 mls/hr IV X1 PRN; Protocol PRN Reason: Rx to Dose Sodium Chloride () 250 mls @ 15 mls/hr IV .[id number] PRN PRN Reason: Saline Flush Last Infusion: 05/01/20 05:53 Dose: 0 mls/hr Documented by: Vancomycin HCl 2,000 mg/ (Sodium Chloride) 540 mls @ 250 mls/hr IV Q12H [facility] Melatonin (Melatonin) 3 mg PO QHS PRN PRN PRN Reason: INSOMNIA Nicotine (Nicoderm Cq (Pbkc)) 21 mg TRANSDERM. DAILY [facility] Last Admin: 05/01/20 08:58 Dose: 21 mg Documented by: Nutritional Formula (Lactose Free) (Ensure Enlive) 120 ml PO 4X/DAY [facility] Last Admin: 05/01/20 08:19 Dose: Not Given Documented by: Ondansetron HCl (Zofran) 4 mg IV Q8H PRN PRN PRN Reason: NAUSEA/VOMITING Oxycodone HCl (Oxyir) 5 mg PO Q4H PRN PRN PRN Reason: Pain Score 4-10/10 Last Admin: 05/01/20 08:58 Dose: 5 mg Documented by: Pregabalin (Lyrica) 300 mg PO BID [facility] Last Admin: 05/01/20 09:03 Dose: 300 mg Documented by: Sodium Chloride () 10 - 40 ml IV UD PRN PRN Reason: SALINE FLUSH Last Admin: 04/29/20 22:37 Dose: 10 ml Documented by: Medical Necessity - Tobacco Use Smoking Status: Current every day smoker Route of nutrition/ use of supplements: [] Nutritional Intake: [] IV Site: [] Lopez Catheter: [] - Assessment/Plan Antibiotics: [] Assessment/Plan: [] Active and Suspected Problems Cellulitis of toe of right foot (Acute) Abscess of right foot (Acute) Toe osteo - cx with MRSA. MRI with osteo. OR today for amputation. Cont vanc, zosyn for now. Will follow
[2020-05-01 11:08] LABS: Vitamin B12 213 pg/mL (211-911)
--- NOTE | 2020-05-01 11:58 | CASEMGMT ---
Social Work Note ANDERSON received message from pt's daughter Natalee stating pt has a court date today at 1:00pm and the courts will need a document from [facility] stating pt is still at [facility]. Natalee states it is [facility] [address] and fax number is [phone]. ANDERSON completed court document and faxed to [facility] [address]. ANDERSON placed a call to Natalee and updated her that court document has been sent for pt. Natalee states understanding, thanked this worker. Latricia Garcia POWER CUTTING MACHINE OPERATOR, BULK FOLDER
[2020-05-01] MEDS: Lactated Ringers 1,000 ML 100 ML IV ×2 (12:13→21:20)
--- NOTE | 2020-05-01 12:18 | RAD_ITS ---
STUDY: X-RAY RIGHT FOOT, TOE REASON FOR EXAM: Male, 54 years old. Right fifth digit amputation. TECHNIQUE: 3 view(s) of the toe were obtained. COMPARISON: Previous right foot study of 04/29/2020 FINDINGS: Status post amputation of the right fifth toe is noted. No soft tissue gas or radiopaque foreign body is seen. RAD/Toe(s) Min 2 Views IMPRESSION: Status post right fifth toe amputation. Electronically Signed: Ryan Hui MD at 16:10 EDT , Service support ,
--- NOTE | 2020-05-01 12:30 | BON_PTH ---
PATIENT: CHAVEZ ALVAREZ LOC: [facility] U#:[id number] AGE/SX: 54/M ROOM: [facility]319 RE04/29/[address]: Dr. Danii Nam MD : [id number] BED: 1 DIS: 05/04/2020 SPEC #: [id number] RECD: 05/01/20 13:48 STATUS: MARYJANE REQ #: [id number] CRISTINA: 05/01/20 12:[address]: Lisa Lorenzo DEPT: SURGICAL PATHOLOGY RECD BY: Iker Sousa ENTERED: 05/02/20 08:27 SP TYPE: Bone OTHR DR: Dr. Jenny Cerna, DPM MD Dr. Seamus Fuentes MD Dr. Robert Leininger, MD Tissues: Bone of foot, NOS Procedures: Decalcification bone/plaque Surgery Specimen Level IV HEADER OPERATION: Fifth toe amputation PRE-OP DIAGNOSIS: Cellulitis of toe of right foot; abscess of right foot TISSUE SUBMITTED: Right fifth toe MICROSCOPIC DIAGNOSIS Right fifth toe, amputation: Focal acute and chronic inflammation and hyperkeratosis. Underlying bone with reactive changes, negative for acute osteomyelitis. DORENE:jose 05/07/20 MICROSCOPIC DESCRIPTION Slides are reviewed. GROSS DESCRIPTION Received in fixative is one container labeled with the patient's name and designated right fifth toe. The specimen consists of a portion of toe measuring 4.5 x 2 x 2 cm. Nail is present which appears atrophic. No obvious area of ulceration is noted. Electric Blanket Wirer sections are submitted in three cassettes as follows: 1 - skin and soft tissue, 2 & 3 - bone after decalcification. / DORENE:jose 05/02/20 TC:2 CPT: 33755, 63857
[2020-05-01] MEDS: Bupivacaine Mpf 0.5% 30 ML VIAL (12:40)
--- NOTE | 2020-05-01 13:20 | OP.PCM_ITS ---
Problem List (1) Osteomyelitis of toe of right foot Status: Acute (2) Cellulitis of toe of right foot Status: Acute (3) Abscess of right foot Status: Acute Report of Operation Date of Procedure: 05/01/20 Pre-Operative Diagnosis: infected right fifth toe with abscess and osteomyelitis Post-Operative Diagnosis: infected right fifth toe with abscess and oste omyelitis Surgery/Procedure Performed:: right fifth toe amputation Description of Surgical Findings:: Hemostasis: Well-padded pneumatic right ankle tourniquet, 250 mmHg, 13 minutes Materials: 3-0 Vicryl and 2-0 nylon Specimens were sent Complications: None The patient tolerated the procedure and anesthesia well. He was transported to the PACU with vital signs stable and vascular status intact to the right lower extremity. Intraoperative fluoroscopy was used to obtain 3 foot x-rays demonstrating adequate amputation of fifth toe noted without acute fractures, dislocation, soft tissue emphysema, or other foreign bodies. He will be transferred back to the medical surgical floor upon continued stability. Postoperative orders were entered electronically. vegetable washing machine operator: none - Lisa Lorenzo DPM Type of Anesthesia:: Local MAC - Preoperative: 1:1 mixture of 1% lidocaine plain and 0.5% Marcaine plain administered in typical right fifth ray block fashion, 10 cc Specimen's removed: 1. Right fifth toe sent to pathology. 2. Right fifth toe sent to microbiology for aerobic, anaerobic, acid-fast, fungal. 3. Status post debridement irrigation wound sent to microbiology for aerobic, anaerobic, MRSA PCR Estimated Blood Loss (mL): < 50mL Description of Procedure: Indications: This 54 year old M with significant past medical history of tobacco use, fibromyalgia, and raynaud's disease presented to the hospital complaining of an infection the past week that failed outpatient oral antibiotics. He was admitted for IV antibiotics and had an incision and drainage. He still has continued pain and purulent drainage. MRI also highly suggest osteomyelitis of the proximal phalanx with a sinus tract to the wound. It is noted this patient does not have a place to live and long-term wound care and IV antibiotics will be challenging to coordinate. These treatment options were discussed in addition to toe amputation which is a more definitive procedure and this will remove the full nidus of infection.His neurovascular status is intact and his noninvasive vascular studies are normal. He has a significant discontinuity to the dorsal aspect of the proximal phalanx of the fifth toe and the fifth metatarsal phalangeal joint with fibrous and seropurulent drainage that probes directly to bone. There is no other bogginess or fluctuance on palpation. He is amendable to proceed with the right fifth toe amputation. The preoperative indications, planned procedure, possible benefits, risk, complications, and anticipated healing time management were discussed in detail. He understands and elects proceed with surgery at this time. No guarantees were made. He understands risks and complications may include but are not limited to the following: pain, swelling, scarring, need for further surgery, loss of limb, function, life, blood clot, allergic reaction, transfer lesion or ulcer. The informed surgical consent and limb were signed. I answered all his questions. This patient also understands he is electing to proceed forward with a nonelective surgery during COVID-19 pandemic. He understands there is an inherent risk with receiving medical care in a hospital facility at this time however the community occurrence and risk remains low. He also understands all necessary precautions are being taken to lower the chances of [place] this virus. Procedure in detail: The patient was transported to the operating room via cart and placed on the operating table in the supine position. Final verification of the patient, surgery, limb designation was performed via the timeout procedure. IV antibiotics are already being administered on the medical surgical floor. MAC anesthesia was initiated by the anesthesia team. Local anesthesia was administered by the podiatry team. A well-padded pneumatic right ankle tourniquet was placed. The right lower extremity was prepped and draped in the usual aseptic manner. Surgery began as the following: [place] exsanguination was performed and the tourniquet was inflated. Attention was first directed to the lateral aspect of the right foot in which a fish mouth incision was made through the skin to gain exposure to the fifth metatarsal phalangeal joint. Care was taken to identify, protect, and retract neurovascular structures at this point and throughout the remainder of the surgery. The fifth metatarsal phalangeal joint was disarticulated and the fifth toe was removed in total. This was sent to both microbiology and pathology. Hemostasis was controlled with pressure and electrocauterization and direct pressure. Avascular structures such as tendon were also excised from the remaining amputation wound site. No purulence or necrosis was identified. The wound site was copiously irrigated with normal saline. At this time new gloves, immediate drapes and clean instrumentation were utilized for the remainder of the case. A post debridement and irrigation culture was obtained and sent to both microbiology. The skin edges were reapproximated in a non-tensile manner with suture as noted using simple suture technique. Care was taken to reapproximate the flap skin closure site utilizing no touch technique. Postoperative x-rays were obtained as noted. A postoperative dressing consisting of Betadine soaked gauze, Kerlix and an Gagandeep wrap were applied. After procedure: The patient tolerated the procedure anesthesia well. He was transferred to the PACU vital signs stable vascular status intact to the right lower extremity. He was advised to ice and elevate for pain and inflammation management. Pain medication will be ordered as well if needed while in the PACU and also once he returns to the medical surgical floor. He will also keep his dressing clean, dry, and intact. To continue on IV antibiotics per infectious disease management. Strict nonweightbearing was recommended to optimize healing. The post operative xrays have been reviewed. Medical management and DVT prophylaxis per primary team is greatly appreciated. Infectious disease management is also appreciated. It is okay to resume anticoagulation medication tomorrow. Postoperative orders were entered electronically. Lisa Lorenzo DPM, [facility] Grafts/Implants Used: None - Complications None - Admit VTE Documentation VTE Present on Admission: No VTE Mechan Device Prophylaxis: SCD's VTE Pharm Prophylaxis ordered?: Yes
--- NOTE | 2020-05-01 16:20 | PCM.PN.HOSP ---
Patient Problems: Active and Suspected Problems Cellulitis of toe of right foot (Acute) Abscess of right foot (Acute) Osteomyelitis of toe of right foot (Acute) Vitals/I&O's: Vital Signs Temp Pulse Resp BP Pulse Ox 97.9 F 60 16 124/81 H 98 05/01/20 14:52 05/01/20 14:52 05/01/20 14:52 05/01/20 14:52 05/01/20 14:52 Oxygen Delivery Method Room Air Weight: 143 lb 15.742 oz Body Mass Index (BMI) 22.5 Intake and Output for Last 24 Hours 04/29/20 04/30/20 05/01/20 23:59 23:59 23:59 Intake Total 1391 / 1691 2220.25 / 2470.25 653.75 / 653.75 Balance 1391 / 1691 2220.25 / 2470.25 653.75 / 653.75 Microbiology Past 72 Hours 04/29/20 13:00 Blood Culture (Wb) - Anticubital Right Blood Culture - Preliminary No growth in 48 hours. 04/29/20 12:55 Blood Culture (Wb) - Left Forearm Blood Culture - Preliminary No growth in 48 hours. 04/29/20 13:00 Wound Abcess - Leg Gram Stain - Final 04/29/20 13:00 Wound Abcess - Leg Wound Culture - Final Meth. resistant Staph. aureus Laboratory Results 04/30/20 16:20: MRSA (PCR) Negative 05/01/20 03:30: Vancomycin Trough 10.1 05/01/20 03:30: Total Bilirubin 0.20, Direct Bilirubin 0.07, AST 10 L, ALT 15 L, Alkaline Phosphatase 88, Total Protein 5.7 L, Albumin 2.8 L, Globulin 2.9, Triglycerides 61, Cholesterol 109, LDL Cholesterol 62, VLDL Cholesterol 12, HDL Cholesterol 35 L, Folate 9.10 05/01/20 03:30: Hemoglobin A1c 5.3 05/01/20 03:30: Vitamin B12 213 05/01/20 : S.aureus Protein A PCR Pending, MRSA (PCR) Pending Current Medications Acetaminophen (Tylenol) 650 mg PO Q6H PRN PRN PRN Reason: Pain Score 1-10/Temp > 100.7 F Last Admin: 04/30/20 20:38 Dose: 650 mg Documented by: Albuterol Sulfate (Ventolin Aerosols) 2.5 mg INHALATION Q2H PRN PRN PRN Reason: Shortness of Breath/Wheezing Aspirin (Ecotrin) 81 mg PO DAILY@0800 [facility] Last Admin: 05/01/20 09:03 Dose: Not Given Documented by: Enoxaparin Sodium (Lovenox) 40 mg SC DAILY [facility] Last Admin: 05/01/20 08:48 Dose: Not Given Documented by: Piperacillin Sod/Tazobactam (Sod 3.375 gm/ Sodium Chloride) 50 mls @ 12.5 mls/hr IV Q8 [facility] Last Admin: 05/01/20 15:06 Dose: 12.5 mls/hr Documented by: Vancomycin IV Pharmacy to Dose (1 ea/ Sodium Chloride) 500 mls @ 250 mls/hr IV X1 PRN; Protocol PRN Reason: Rx to Dose Sodium Chloride () 250 mls @ 15 mls/hr IV .[id number] PRN PRN Reason: Saline Flush Last Infusion: 05/01/20 05:53 Dose: 0 mls/hr Documented by: Vancomycin HCl 2,000 mg/ (Sodium Chloride) 540 mls @ 250 mls/hr IV Q12H [facility] Last Admin: 05/01/20 16:10 Dose: 250 mls/hr Documented by: Lactated Ringer's () 1,000 mls @ 100 mls/hr IV .Q10H [facility] Last Admin: 05/01/20 12:13 Dose: 100 mls/hr Documented by: Melatonin (Melatonin) 3 mg PO QHS PRN PRN PRN Reason: INSOMNIA Nicotine (Nicoderm Cq (Pbkc)) 21 mg TRANSDERM. DAILY [facility] Last Admin: 05/01/20 08:58 Dose: 21 mg Documented by: Nutritional Formula (Lactose Free) (Ensure Enlive) 120 ml PO 4X/DAY [facility] Last Admin: 05/01/20 15:06 Dose: 120 ml Documented by: Ondansetron HCl (Zofran) 4 mg IV Q8H PRN PRN PRN Reason: NAUSEA/VOMITING Oxycodone HCl (Oxyir) 5 mg PO Q4H PRN PRN PRN Reason: Pain Score 4-10/10 Last Admin: 05/01/20 15:06 Dose: 5 mg Documented by: Pregabalin (Lyrica) 300 mg PO BID [facility] Last Admin: 05/01/20 09:03 Dose: 300 mg Documented by: Sodium Chloride () 10 - 40 ml IV UD PRN PRN Reason: SALINE FLUSH Last Admin: 04/29/20 22:37 Dose: 10 ml Documented by: STROKE Vital Signs/Narrative: Vital Signs Temp Pulse Resp BP Pulse Ox 05/01/20 14:52 97.9 F 60 16 124/81 H 98 05/01/20 13:50 98 F 67 16 116/74 100 05/01/20 13:45 70 16 106/75 99 05/01/20 13:40 68 16 102/64 96 05/01/20 13:35 65 16 93/55 L 96 05/01/20 13:31 98.6 F 64 16 96/64 100 Medical Necessity - Tobacco Use Smoking Status: Current every day smoker Assessment/Plan All Active Problems Cellulitis of toe of right foot (Acute) Abscess of right foot (Acute) Osteomyelitis of toe of right foot (Acute)
--- NOTE | 2020-05-01 16:34 | PCM.PN.HOSP ---
Patient Problems: Active and Suspected Problems Cellulitis of toe of right foot (Acute) Abscess of right foot (Acute) Osteomyelitis of toe of right foot (Acute) Objective: Patient had fifth toe amputation today. Blood pressure and heart rate is good. Physical exam General: Alert, Oriented x3, Cooperative HEENT: Atraumatic, PERRLA, EOMI, Normocephalic Oral: No Gingival or Mucosal Lesions/ Ulcerations Neck: Supple, No JVD, Negative Carotid Bruits Lungs: Air entry diminished in bilateral lung bases. No crepitation/rhonchi Cardiovascular: Regular rate, Regular Rhythm, Normal S1, Normal S2, No murmurs Abdomen: Bowel Sounds Present, Soft, Non Tender, Non-Distended : No renal angle tenderness. No suprapubic tenderness. Extremities: No edema, Capillary Refill Less than 3 Seconds Skin: Left fifth toe amputation. Surgical dressing present. Multiple small nodules, subcutaneous in both upper forearms. Musculoskeletal: No Tenderness to Palpation of Joints or Extremities Neurological: Cranial nerves II-XII grossly intact, Deep Tendon Reflexes 2+/4 and Symmetrical, Neuro grossly intact Psych/Mental Status: Normal Affect, Appropriate. Vitals/I&O's: Vital Signs Temp Pulse Resp BP Pulse Ox 97.9 F 60 16 124/81 H 98 05/01/20 14:52 05/01/20 14:52 05/01/20 14:52 05/01/20 14:52 05/01/20 14:52 Oxygen Delivery Method Room Air Weight: 143 lb 15.742 oz Body Mass Index (BMI) 22.5 Intake and Output for Last 24 Hours 04/29/20 04/30/20 05/01/20 23:59 23:59 23:59 Intake Total 1391 / 1691 2220.25 / 2470.25 653.75 / 653.75 Balance 1391 / 1691 2220.25 / 2470.25 653.75 / 653.75 Microbiology Past 72 Hours 04/29/20 13:00 Blood Culture (Wb) - Anticubital Right Blood Culture - Preliminary No growth in 48 hours. 04/29/20 12:55 Blood Culture (Wb) - Left Forearm Blood Culture - Preliminary No growth in 48 hours. 04/29/20 13:00 Wound Abcess - Leg Gram Stain - Final 04/29/20 13:00 Wound Abcess - Leg Wound Culture - Final Meth. resistant Staph. aureus Laboratory Results 04/30/20 16:20: MRSA (PCR) Negative 05/01/20 03:30: Vancomycin Trough 10.1 05/01/20 03:30: Total Bilirubin 0.20, Direct Bilirubin 0.07, AST 10 L, ALT 15 L, Alkaline Phosphatase 88, Total Protein 5.7 L, Albumin 2.8 L, Globulin 2.9, Triglycerides 61, Cholesterol 109, LDL Cholesterol 62, VLDL Cholesterol 12, HDL Cholesterol 35 L, Folate 9.10 05/01/20 03:30: Hemoglobin A1c 5.3 05/01/20 03:30: Vitamin B12 213 05/01/20 : S.aureus Protein A PCR Pending, MRSA (PCR) Pending Current Medications Acetaminophen (Tylenol) 650 mg PO Q6H PRN PRN PRN Reason: Pain Score 1-10/Temp > 100.7 F Last Admin: 04/30/20 20:38 Dose: 650 mg Documented by: Albuterol Sulfate (Ventolin Aerosols) 2.5 mg INHALATION Q2H PRN PRN PRN Reason: Shortness of Breath/Wheezing Aspirin (Ecotrin) 81 mg PO DAILY@0800 [facility] Last Admin: 05/01/20 09:03 Dose: Not Given Documented by: Enoxaparin Sodium (Lovenox) 40 mg SC DAILY [facility] Last Admin: 05/01/20 08:48 Dose: Not Given Documented by: Hydromorphone HCl (Dilaudid Inj) 1 mg IV Q3H PRN PRN PRN Reason: Pain Score 6-10/10 Piperacillin Sod/Tazobactam (Sod 3.375 gm/ Sodium Chloride) 50 mls @ 12.5 mls/hr IV Q8 [facility] Last Admin: 05/01/20 15:06 Dose: 12.5 mls/hr Documented by: Vancomycin IV Pharmacy to Dose (1 ea/ Sodium Chloride) 500 mls @ 250 mls/hr IV X1 PRN; Protocol PRN Reason: Rx to Dose Sodium Chloride () 250 mls @ 15 mls/hr IV .[id number] PRN PRN Reason: Saline Flush Last Infusion: 05/01/20 05:53 Dose: 0 mls/hr Documented by: Vancomycin HCl 2,000 mg/ (Sodium Chloride) 540 mls @ 250 mls/hr IV Q12H [facility] Last Admin: 05/01/20 16:10 Dose: 250 mls/hr Documented by: Lactated Ringer's () 1,000 mls @ 100 mls/hr IV .Q10H [facility] Last Admin: 05/01/20 12:13 Dose: 100 mls/hr Documented by: Melatonin (Melatonin) 3 mg PO QHS PRN PRN PRN Reason: INSOMNIA Nicotine (Nicoderm Cq (Pbkc)) 21 mg TRANSDERM. DAILY [facility] Last Admin: 05/01/20 08:58 Dose: 21 mg Documented by: Nutritional Formula (Lactose Free) (Ensure Enlive) 120 ml PO 4X/DAY [facility] Last Admin: 05/01/20 15:06 Dose: 120 ml Documented by: Ondansetron HCl (Zofran) 4 mg IV Q8H PRN PRN PRN Reason: NAUSEA/VOMITING Oxycodone HCl (Oxyir) 5 mg PO Q4H PRN PRN PRN Reason: Pain Score 4-10/10 Last Admin: 05/01/20 15:06 Dose: 5 mg Documented by: Pregabalin (Lyrica) 300 mg PO BID [facility] Last Admin: 05/01/20 09:03 Dose: 300 mg Documented by: Sodium Chloride () 10 - 40 ml IV UD PRN PRN Reason: SALINE FLUSH Last Admin: 04/29/20 22:37 Dose: 10 ml Documented by: STROKE Vital Signs/Narrative: Vital Signs Temp Pulse Resp BP Pulse Ox 05/01/20 14:52 97.9 F 60 16 124/81 H 98 05/01/20 13:50 98 F 67 16 116/74 100 05/01/20 13:45 70 16 106/75 99 05/01/20 13:40 68 16 102/64 96 05/01/20 13:35 65 16 93/55 L 96 05/01/20 13:31 98.6 F 64 16 96/64 100 Medical Necessity - Tobacco Use Smoking Status: Current every day smoker Assessment/Plan All Active Problems Cellulitis of toe of right foot (Acute) Abscess of right foot (Acute) Osteomyelitis of toe of right foot (Acute) 54-year-old gentleman with history of chronic smoking and rainouts disease admitted with right fifth toes ulcer with surrounding abscess and cellulitis. 1. Right fifth toe ulcer with abscess due to MRSA status post incision and drainage on 04/29/2020: Patient is being admitted on [facility] floor under podiatry service. Patient had lower extremity MRI which showed right fifth proximal phalanx osteomyelitis. Mild arthrosis of first MTP joint arthrosis and a small intermetatarsal neuroma of second webspace. ID has been consulted. Currently patient is on vancomycin and Zosyn. Patient failed outpatient doxycycline and Keflex. Wound culture is positive of MRSA. Patient seen by ID. 2. 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 Aspirin 81 mg p.o. daily started. Fasting profile shows LDL 62, HDL 35 mainly low HDL. Atorvastatin 20 mg daily. 3. Lab abnormalities mild hyperglycemia, glucose 111: A1c 5.3. mild microcytosis, MCV 95. Patient drinks alcohol very rarely once in a month. B12 serum level 213. Folate normal. No anemia, hemoglobin 13/37.7. Vitamin B12 1000 mcg daily. 4. DVT prophylaxis: Lovenox 40 mg subcu daily. Discontinue if platelet count drops less than 50,000 or hemoglobin less than 8 g% Clinical Impression(s) from Imaging Studies Foot X-Ray 04/29/20 12:42 IMPRESSION: Soft tissue swelling fifth digit Lower Extremity MRI 04/30/20 11:04 IMPRESSION: Bone edema of the fifth proximal phalanx suggestive of osteomyelitis. Mild arthrosis of the first metatarsophalangeal joint with subchondral lesions. Small intermetatarsal neuroma of the second webspace. Inpatient E&M: 25023 [facility] L2
[2020-05-01 17:08] LABS: M R Staph aureus DNA By PCR POSITIVE (Negative); Probe Check PASS; Staph aureus DNA By PCR POSITIVE (Negative)
[2020-05-01] MEDS: HYDROmorphone 1 MG/ML Syringe IV ×2 (18:17→21:26)
[2020-05-01] MEDS: Cyanocobalamin 500 MCG Tablet 1000 MCG PO (18:20)
[2020-05-01] MEDS: Atorvastatin Calcium 20 MG Tablet PO (21:20)
[2020-05-02 01:46] VITALS: BP 125/86; PULSE 73; RESP 16; TEMP 36.8; O2SAT 98
[2020-05-02] MEDS: oxyCODONE 5 MG Tablet PO ×3 (01:55→17:44)
[2020-05-02 06:00] LABS: Absolute Lymphocyte Count 1.61 X10^3/uL (0.83-4.51); Basophil# 0.02 X10^3/uL; Basophil% 0.2 % (0-1); Eosinophil# 0.17 X10^3/uL; Hematocrit 34.2 % (40-54); Lymphocyte # 1.61 X10^3/ul (4.0); Lymphocyte % 19.1 % (19-41); Mean Corp Hgb Conc 35.1 g/dL (32-36); Mean Corpuscular Hgb 33.1 pg (27.0-32.0); Mean Corpuscular Volume 94.5 fL (80-94); Mean Platelet Vol. 10.5 fl (6.2-12.0); Monocyte# 0.57 X10^3/uL; Monocyte% 6.8 % (0-10); NRBC Flagged by Analyzer 0 % (0-5); Neutrophil # 6.02 X10^3/uL (2.7-7.7); Neutrophil % 71.7 % (47-70); Platelet Count 202 K/mm3 (150-450); RBC Distribution Width CV 11.9 % (11.6-14.6); RBC Distribution Width SD 40.8 fl (35.1-43.9); Red Blood Count 3.62 M/mm3 (4.6-6.2); White Blood Count 8.4 K/mm3 (4.4-11.0)
[2020-05-02 06:38] LABS: AST(SGOT) 12 U/L (15-37); Alanine Aminotransfer ALT/SGPT 15 U/L (16-61); Albumin, Serum 2.7 g/dL (3.2-5.0); Alkaline Phosphatase 83 U/L (45-117); Anion Gap 4 (5-15); BUN 14 mg/dL (7-18); Bilirubin, Direct 0.07 mg/dL (0.00-0.30); Calcium,Total 8.1 mg/dL (8.5-10.1); Chloride 108 mmol/L (98-107); Creatinine, Serum 0.82 mg/dL (0.70-1.30); EST Glomerular Filtration Rate 103 mL/min (>60); Est Glom Filt Rate - Afr Amer 125 mL/min (>60); Estimated Creatinine Clearance 95.13 ml/min; Globulin 3.3 g/dL (2.2-4.2); Glucose 104 mg/dL (74-106); Potassium 3.9 mmol/L (3.5-5.1); Sodium Level 141 mmol/L (136-145)
--- NOTE | 2020-05-02 07:48 | PCM.PROGNOTE ---
Patient Problems: Active and Suspected Problems Cellulitis of toe of right foot (Acute) Abscess of right foot (Acute) Osteomyelitis of toe of right foot (Acute) Subjective: This 54-year-old male was seen bedside postoperative day #1 right fifth toe amputation. He rates his pain is moderate and aggravated when he dangles his leg and tries to use the restroom. He denies odor or redness or streaking. He denies fever, chill, nausea, vomiting. - Physical Exam Vitals/I&O's: Vital Signs Temp Pulse Resp BP Pulse Ox 98.2 F 73 16 125/86 H 98 05/02/20 01:46 05/02/20 01:46 05/02/20 01:46 05/02/20 01:46 05/02/20 01:46 Oxygen Delivery Method Room Air Weight: 65.31 kg Body Mass Index (BMI) 22.5 Intake and Output for Last 24 Hours 04/30/20 05/01/20 05/02/20 23:59 23:59 23:59 Intake Total 2220.25 / 2470.25 2695.42 / 2695.42 1275.42 / 1275.42 Balance 2220.25 / 2470.25 2695.42 / 2695.42 1275.42 / 1275.42 General: Alert, Oriented x3, Cooperative Extremities: No cyanosis, No edema, Capillary Refill Less than 3 Seconds - All digits right foot and also to the amputation stump site, No Calf Tenderness, Tenderness - Tenderness to surgical site noted Skin: Ulcer/ Wound - No purulence, erythema, streaking, odor. His cellulitis appears to be resolving well., Incision - The amputation incision site is well aligned and coapted without maceration, necrosis, eschar, or gapping. There is no adjacent bogginess or fluctuance on palpation Musculoskeletal: No Tenderness to Palpation of Joints or Extremities, Muscle Wasting Neurological: Sensory exam intact to light touch and pain Psych/Mental Status: Normal Affect, Appropriate Microbiology Past 72 Hours 04/29/20 13:00 Blood Culture (Wb) - Anticubital Right Blood Culture - Preliminary No growth in 48 hours. 04/29/20 12:55 Blood Culture (Wb) - Left Forearm Blood Culture - Preliminary No growth in 48 hours. 04/29/20 13:00 Wound Abcess - Leg Gram Stain - Final 04/29/20 13:00 Wound Abcess - Leg Wound Culture - Final Meth. resistant Staph. aureus Laboratory Results 05/01/20 03:30: Hemoglobin A1c 5.3 05/01/20 03:30: Vitamin B12 213 05/01/20 : S.aureus Protein A PCR POSITIVE H, MRSA (PCR) POSITIVE H 05/02/20 05:51: Sodium 141, Potassium 3.9, Chloride 108 H, Carbon Dioxide 29.0, Anion Gap 4 L, BUN 14, Creatinine 0.82, Estim Creat Clear Calc 95.13, Est GFR (MDRD) Af Amer 125, Est GFR (MDRD) Non-Af 103, BUN/Creatinine Ratio 17.0, Glucose 104, Calcium 8.1 L, Total Bilirubin 0.20, Direct Bilirubin 0.07, AST 12 L, ALT 15 L, Alkaline Phosphatase 83, Total Protein 6.0 L, Albumin 2.7 L, Globulin 3.3 05/02/20 05:51: WBC 8.4, RBC 3.62 L, Hgb 12.0 L, Hct 34.2 L, MCV 94.5 H, MCH 33.1 H, MCHC 35.1, RDW Std Deviation 40.8, RDW Coeff of Annie 11.9, Plt Count 202, MPV 10.5, Immature Gran % (Auto) 0.200, Neut % (Auto) 71.7 H, Lymph % (Auto) 19.1, [place] % (Auto) 6.8, Eos % (Auto) 2.0, Baso % (Auto) 0.2, Absolute Neuts (auto) 6.0, Absolute Lymphs (auto) 1.61, Nucleated RBC % 0 Current Medications Acetaminophen (Tylenol) 650 mg PO Q6H PRN PRN PRN Reason: Pain Score 1-10/Temp > 100.7 F Last Admin: 04/30/20 20:38 Dose: 650 mg Documented by: Albuterol Sulfate (Ventolin Aerosols) 2.5 mg INHALATION Q2H PRN PRN PRN Reason: Shortness of Breath/Wheezing Aspirin (Ecotrin) 81 mg PO DAILY@0800 [facility] Last Admin: 05/01/20 09:03 Dose: Not Given Documented by: Atorvastatin Calcium (Lipitor) 20 mg PO QHS [facility] Last Admin: 05/01/20 21:20 Dose: 20 mg Documented by: Cyanocobalamin (Vitamin B12) 1,000 mcg PO DAILY@0800 [facility] Last Admin: 05/01/20 18:20 Dose: 1,000 mcg Documented by: Enoxaparin Sodium (Lovenox) 40 mg SC DAILY [facility] Last Admin: 05/01/20 08:48 Dose: Not Given Documented by: Hydromorphone HCl (Dilaudid Inj) 1 mg IV Q3H PRN PRN PRN Reason: Pain Score 6-10/10 Last Admin: 05/01/20 21:26 Dose: 1 mg Documented by: Piperacillin Sod/Tazobactam (Sod 3.375 gm/ Sodium Chloride) 50 mls @ 12.5 mls/hr IV Q8 [facility] Last Admin: 05/02/20 05:55 Dose: 12.5 mls/hr Documented by: Vancomycin IV Pharmacy to Dose (1 ea/ Sodium Chloride) 500 mls @ 250 mls/hr IV X1 PRN; Protocol PRN Reason: Rx to Dose Sodium Chloride () 250 mls @ 15 mls/hr IV .[id number] PRN PRN Reason: Saline Flush Last Infusion: 05/02/20 05:56 Dose: 0 mls/hr Documented by: Vancomycin HCl 2,000 mg/ (Sodium Chloride) 540 mls @ 250 mls/hr IV Q12H [facility] Last Infusion: 05/02/20 05:40 Dose: Infused Documented by: Lactated Ringer's () 1,000 mls @ 100 mls/hr IV .Q10H [facility] Last Infusion: 05/02/20 05:40 Dose: 100 mls/hr Documented by: Melatonin (Melatonin) 3 mg PO QHS PRN PRN PRN Reason: INSOMNIA Nicotine (Nicoderm Cq (Pbkc)) 21 mg TRANSDERM. DAILY [facility] Last Admin: 05/01/20 08:58 Dose: 21 mg Documented by: Nutritional Formula (Lactose Free) (Ensure Enlive) 120 ml PO 4X/DAY [facility] Last Admin: 05/01/20 21:26 Dose: 120 ml Documented by: Ondansetron HCl (Zofran) 4 mg IV Q8H PRN PRN PRN Reason: NAUSEA/VOMITING Oxycodone HCl (Oxyir) 5 mg PO Q4H PRN PRN PRN Reason: Pain Score 4-10/10 Last Admin: 05/02/20 01:55 Dose: 5 mg Documented by: Pregabalin (Lyrica) 300 mg PO BID [facility] Last Admin: 05/01/20 21:20 Dose: 300 mg Documented by: Sodium Chloride () 10 - 40 ml IV UD PRN PRN Reason: SALINE FLUSH Last Admin: 04/29/20 22:37 Dose: 10 ml Documented by: Medical Necessity - Tobacco Use Smoking Status: Current every day smoker Assessment/Plan All Active Problems Cellulitis of toe of right foot (Acute) Abscess of right foot (Acute) Osteomyelitis of toe of right foot (Acute) Postoperative day #1 right fifth toe amputation secondary to abscess and osteomyelitis (proximal phalanx) right 5th toe Right foot cellulitis resolving well Tobacco Dependence Homeless Fibromyalgia Re-evaluation performed postoperative day #1. His vitals are stable and he remains afebrile. He does not demonstrate any leukocytosis and his white blood cell count is 8.4. He is demonstrating initial MRSA growth and continues on contact precautions. Intraoperative findings after the amputation was performed demonstrated resolution of purulence, necrosis, or nonviable tissue. The margin appeared clean including the articular surface of the fifth metatarsal head. The fifth toe was sent to both microbiology and pathology. Additionally, a wound culture was sent to microbiology for aerobic, anaerobic, and MRSA PCR testing after copious irrigation was performed. These results are all pending. To continue vancomycin and Zosyn at this time. Infectious disease physician, Dr. Llamas, is following. His amputation stump site appears viable with resolved signs of local infection. A new dressing consisting of Betadine wet-to-dry gauze was applied. To heel weight-bear with surgical shoe. This will be ordered. He expresses difficulty in doing so and I recommend working with physical therapy to help him get set up with an assistive device such as a cane or walker. Recommended smoking/tobacco cessation to optimize foot/ankle health. LEAS have been reviewed and there are no gross abnormalities. Intervention is not planned at this time. DVT Prophylaxis: SCDs. Okay to discharge to snf facility from a surgical standpoint. Please do not hesitate to call if you have any questions. After discharge, he can follow-up at the foot and ankle center with Dr. Lorenzo. Lisa Lorenzo DPM, [facility] [phone]
[2020-05-02 09:25] VITALS: BP 118/70; PULSE 64; RESP 16; TEMP 36.9; O2SAT 97
[2020-05-02] MEDS: Cyanocobalamin 500 MCG Tablet 1000 MCG PO (09:33)
[2020-05-02] MEDS: Aspirin E.C. 81 MG Tablet PO (09:34)
[2020-05-02] MEDS: Enoxaparin 40 MG/0.4 ML Syringe SC (09:34)
[2020-05-02] MEDS: Pregabalin 75 MG Capsule 300 MG PO ×2 (09:34→21:49)
--- NOTE | 2020-05-02 11:38 | PN_ITS ---
Patient Problems: Active and Suspected Problems Cellulitis of toe of right foot (Acute) Abscess of right foot (Acute) Osteomyelitis of toe of right foot (Acute) Reason for Visit: Right fifth toe osteomyelitis. Objective: Vitals: Blood pressure and heart rate controlled. No fever. Complain of moderate to severe pain even on putting his legs down. Patient does not have home lives in a trailer. Physical exam General: Alert, Oriented x3, Cooperative HEENT: Atraumatic, PERRLA, EOMI, Normocephalic Oral: No Gingival or Mucosal Lesions/ Ulcerations Neck: Supple, No JVD, Negative Carotid Bruits Lungs: Air entry diminished in bilateral lung bases. No crepitation/rhonchi Cardiovascular: Regular rate, Regular Rhythm, Normal S1, Normal S2, No murmurs Abdomen: Bowel Sounds Present, Soft, Non Tender, Non-Distended : No renal angle tenderness. No suprapubic tenderness. Extremities: No edema, Capillary Refill Less than 3 Seconds Skin: Right fifth toe digit amputation. Dressing is dry. Subcutaneous nodule in the forearms. Musculoskeletal: No Tenderness to Palpation of Joints or Extremities Neurological: Cranial nerves II-XII grossly intact, Deep Tendon Reflexes 2+/4 and Symmetrical, Neuro grossly intact Psych/Mental Status: Normal Affect, Appropriate. Vitals/I&O's: Vital Signs Temp Pulse Resp BP Pulse Ox 98.5 F 64 16 118/70 97 05/02/20 09:25 05/02/20 09:25 05/02/20 09:25 05/02/20 09:25 05/02/20 09:25 Oxygen Delivery Method Room Air Weight: 143 lb 15.742 oz Body Mass Index (BMI) 22.5 Intake and Output for Last 24 Hours 04/30/20 05/01/20 05/02/20 23:59 23:59 23:59 Intake Total 2220.25 / 2470.25 2695.42 / 2695.42 1275.42 / 1275.42 Balance 2220.25 / 2470.25 2695.42 / 2695.42 1275.42 / 1275.42 Microbiology Past 72 Hours 05/01/20 Unknown Tissue - Toe Gram Stain - Final 05/01/20 Unknown Tissue - Toe Wound Culture - Preliminary Gram negative familia 05/01/20 Unknown Wound - Toe Gram Stain - Final 05/01/20 Unknown Wound - Toe Wound Culture - Preliminary No growth-Final to follow 04/29/20 13:00 Blood Culture (Wb) - Anticubital Right Blood Culture - Preliminary No growth in 48 hours. 04/29/20 12:55 Blood Culture (Wb) - Left Forearm Blood Culture - Preliminary No growth in 48 hours. 04/29/20 13:00 Wound Abcess - Leg Gram Stain - Final 04/29/20 13:00 Wound Abcess - Leg Wound Culture - Final Meth. resistant Staph. aureus Laboratory Results 05/01/20 : S.aureus Protein A PCR POSITIVE H, MRSA (PCR) POSITIVE H 05/02/20 05:51: Sodium 141, Potassium 3.9, Chloride 108 H, Carbon Dioxide 29.0, Anion Gap 4 L, BUN 14, Creatinine 0.82, Estim Creat Clear Calc 95.13, Est GFR (MDRD) Af Amer 125, Est GFR (MDRD) Non-Af 103, BUN/Creatinine Ratio 17.0, Glucose 104, Calcium 8.1 L, Total Bilirubin 0.20, Direct Bilirubin 0.07, AST 12 L, ALT 15 L, Alkaline Phosphatase 83, Total Protein 6.0 L, Albumin 2.7 L, Globulin 3.3 05/02/20 05:51: WBC 8.4, RBC 3.62 L, Hgb 12.0 L, Hct 34.2 L, MCV 94.5 H, MCH 33.1 H, MCHC 35.1, RDW Std Deviation 40.8, RDW Coeff of Annie 11.9, Plt Count 202, MPV 10.5, Immature Gran % (Auto) 0.200, Neut % (Auto) 71.7 H, Lymph % (Auto) 19.1, [place] % (Auto) 6.8, Eos % (Auto) 2.0, Baso % (Auto) 0.2, Absolute Neuts (auto) 6.0, Absolute Lymphs (auto) 1.61, Nucleated RBC % 0 Current Medications Acetaminophen (Tylenol) 650 mg PO Q6H PRN PRN PRN Reason: Pain Score 1-10/Temp > 100.7 F Last Admin: 04/30/20 20:38 Dose: 650 mg Documented by: Albuterol Sulfate (Ventolin Aerosols) 2.5 mg INHALATION Q2H PRN PRN PRN Reason: Shortness of Breath/Wheezing Aspirin (Ecotrin) 81 mg PO DAILY@0800 [facility] Last Admin: 05/02/20 09:34 Dose: 81 mg Documented by: Atorvastatin Calcium (Lipitor) 20 mg PO QHS [facility] Last Admin: 05/01/20 21:20 Dose: 20 mg Documented by: Cyanocobalamin (Vitamin B12) 1,000 mcg PO DAILY@0800 [facility] Last Admin: 05/02/20 09:33 Dose: 1,000 mcg Documented by: Enoxaparin Sodium (Lovenox) 40 mg SC DAILY [facility] Last Admin: 05/02/20 09:34 Dose: 40 mg Documented by: Hydromorphone HCl (Dilaudid Inj) 1 mg IV Q3H PRN PRN PRN Reason: Pain Score 6-10/10 Last Admin: 05/01/20 21:26 Dose: 1 mg Documented by: Piperacillin Sod/Tazobactam (Sod 3.375 gm/ Sodium Chloride) 50 mls @ 12.5 mls/hr IV Q8 [facility] Last Admin: 05/02/20 05:55 Dose: 12.5 mls/hr Documented by: Vancomycin IV Pharmacy to Dose (1 ea/ Sodium Chloride) 500 mls @ 250 mls/hr IV X1 PRN; Protocol PRN Reason: Rx to Dose Sodium Chloride () 250 mls @ 15 mls/hr IV .[id number] PRN PRN Reason: Saline Flush Last Infusion: 05/02/20 05:56 Dose: 0 mls/hr Documented by: Vancomycin HCl 2,000 mg/ (Sodium Chloride) 540 mls @ 250 mls/hr IV Q12H [facility] Last Infusion: 05/02/20 05:40 Dose: Infused Documented by: Lactated Ringer's () 1,000 mls @ 100 mls/hr IV .Q10H [facility] Last Infusion: 05/02/20 05:40 Dose: 100 mls/hr Documented by: Melatonin (Melatonin) 3 mg PO QHS PRN PRN PRN Reason: INSOMNIA Nicotine (Nicoderm Cq (Pbkc)) 21 mg TRANSDERM. DAILY [facility] Last Admin: 05/02/20 09:35 Dose: 21 mg Documented by: Nutritional Formula (Lactose Free) (Ensure Enlive) 120 ml PO 4X/DAY [facility] Last Admin: 05/02/20 09:32 Dose: 120 ml Documented by: Ondansetron HCl (Zofran) 4 mg IV Q8H PRN PRN PRN Reason: NAUSEA/VOMITING Oxycodone HCl (Oxyir) 5 mg PO Q4H PRN PRN PRN Reason: Pain Score 4-10/10 Last Admin: 05/02/20 09:33 Dose: 5 mg Documented by: Pregabalin (Lyrica) 300 mg PO BID [facility] Last Admin: 05/02/20 09:34 Dose: 300 mg Documented by: Sodium Chloride () 10 - 40 ml IV UD PRN PRN Reason: SALINE FLUSH Last Admin: 04/29/20 22:37 Dose: 10 ml Documented by: STROKE Vital Signs/Narrative: Vital Signs Temp Pulse Resp BP Pulse Ox 05/02/20 09:25 98.5 F 64 16 118/70 97 Medical Necessity - Tobacco Use Smoking Status: Current every day smoker Assessment/Plan All Active Problems Cellulitis of toe of right foot (Acute) Abscess of right foot (Acute) Osteomyelitis of toe of right foot (Acute) 54-year-old gentleman with history of chronic smoking and rainouts disease admitted with right fifth toes ulcer with surrounding abscess and cellulitis. 1. Right fifth toe ulcer with abscess due to MRSA status post incision and drainage on 04/29/2020: [facility] service. Patient had lower extremity MRI which showed right fifth proximal phalanx osteomyelitis. Mild arthrosis of first MTP joint arthrosis and a small intermetatarsal neuroma of second webspace. ID has been consulted. Currently patient is on vancomycin and Zosyn. Patient failed outpatient doxycycline and Keflex. Wound culture is positive of MRSA. Patient seen by ID. After amputation, probably will need short course of antibiotic as infectious region is eradicated. Probably discharge on home antibiotic. MRSA sensitive to Bactrim, linezolid and doxycycline. 2. 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 Aspirin 81 mg p.o. daily started. Fasting profile shows LDL 62, HDL 35 mainly low HDL. Atorvastatin 20 mg daily. 3. Lab abnormalities mild hyperglycemia, glucose 111: A1c 5.3. mild microcytosis, MCV 95. Patient drinks alcohol very rarely once in a month. B12 serum level 213. Folate normal. No anemia, hemoglobin 13/37.7. Vitamin B12 1 000 mcg daily. 4. DVT prophylaxis: Lovenox 40 mg subcu daily. Discontinue if platelet count drops less than 50,000 or hemoglobin less than 8 g% Clinical Impression(s) from Imaging Studies Foot X-Ray 04/29/20 12:42 IMPRESSION: Soft tissue swelling fifth digit Lower Extremity MRI 04/30/20 11:04 IMPRESSION: Bone edema of the fifth proximal phalanx suggestive of osteomyelitis. Mild arthrosis of the first metatarsophalangeal joint with subchondral lesions. Small intermetatarsal neuroma of the second webspace. Inpatient E&M: 96102 Subs Hosp L2
[2020-05-02 15:04] VITALS: BP 103/53; PULSE 75; RESP 16; TEMP 36.8; O2SAT 97
--- NOTE | 2020-05-02 16:14 | PN.ID_ITS ---
Patient Problems: Active and Suspected Problems Cellulitis of toe of right foot (Acute) Abscess of right foot (Acute) Osteomyelitis of toe of right foot (Acute) Subjective: Feeling ok, no fever, no n/v/d. - Physical Exam Vitals/I&O's: Vital Signs Temp Pulse Resp BP Pulse Ox 98.3 F 75 16 103/53 L 97 05/02/20 15:04 05/02/20 15:04 05/02/20 15:04 05/02/20 15:04 05/02/20 15:04 Oxygen Delivery Method Room Air Weight: 65.31 kg Body Mass Index (BMI) 22.5 Intake and Output for Last 24 Hours 04/30/20 05/01/20 05/02/20 23:59 23:59 23:59 Intake Total 2220.25 / 2470.25 2695.42 / 2695.42 1325.42 / 1325.42 Balance 2220.25 / 2470.25 2695.42 / 2695.42 1325.42 / 1325.42 General: Alert, Cooperative, No apparent distress Lungs: Clear to auscultation, Normal air movement Cardiovascular: Regular rate, Regular Rhythm Abdomen: Soft, Non Tender, Non-Distended Skin: No rashes Microbiology Past 72 Hours 05/01/20 Unknown Tissue - Toe Gram Stain - Final 05/01/20 Unknown Tissue - Toe Wound Culture - Preliminary Gram negative familia 05/01/20 Unknown Wound - Toe Gram Stain - Final 05/01/20 Unknown Wound - Toe Wound Culture - Preliminary No growth-Final to follow 04/29/20 13:00 Blood Culture (Wb) - Anticubital Right Blood Culture - Preliminary No growth in 48 hours. 04/29/20 12:55 Blood Culture (Wb) - Left Forearm Blood Culture - Preliminary No growth in 48 hours. 04/29/20 13:00 Wound Abcess - Leg Gram Stain - Final 04/29/20 13:00 Wound Abcess - Leg Wound Culture - Final Meth. resistant Staph. aureus Laboratory Results 05/01/20 : S.aureus Protein A PCR POSITIVE H, MRSA (PCR) POSITIVE H 05/02/20 05:51: Sodium 141, Potassium 3.9, Chloride 108 H, Carbon Dioxide 29.0, Anion Gap 4 L, BUN 14, Creatinine 0.82, Estim Creat Clear Calc 95.13, Est GFR (MDRD) Af Amer 125, Est GFR (MDRD) Non-Af 103, BUN/Creatinine Ratio 17.0, Glucose 104, Calcium 8.1 L, Total Bilirubin 0.20, Direct Bilirubin 0.07, AST 12 L, ALT 15 L, Alkaline Phosphatase 83, Total Protein 6.0 L, Albumin 2.7 L, Globulin 3.3 05/02/20 05:51: WBC 8.4, RBC 3.62 L, Hgb 12.0 L, Hct 34.2 L, MCV 94.5 H, MCH 33.1 H, MCHC 35.1, RDW Std Deviation 40.8, RDW Coeff of Annie 11.9, Plt Count 202, MPV 10.5, Immature Gran % (Auto) 0.200, Neut % (Auto) 71.7 H, Lymph % (Auto) 19.1, [place] % (Auto) 6.8, Eos % (Auto) 2.0, Baso % (Auto) 0.2, Absolute Neuts (auto) 6.0, Absolute Lymphs (auto) 1.61, Nucleated RBC % 0 Current Medications Acetaminophen (Tylenol) 650 mg PO Q6H PRN PRN PRN Reason: Pain Score 1-10/Temp > 100.7 F Last Admin: 04/30/20 20:38 Dose: 650 mg Documented by: Albuterol Sulfate (Ventolin Aerosols) 2.5 mg INHALATION Q2H PRN PRN PRN Reason: Shortness of Breath/Wheezing Aspirin (Ecotrin) 81 mg PO DAILY@0800 [facility] Last Admin: 05/02/20 09:34 Dose: 81 mg Documented by: Atorvastatin Calcium (Lipitor) 20 mg PO QHS [facility] Last Admin: 05/01/20 21:20 Dose: 20 mg Documented by: Cyanocobalamin (Vitamin B12) 1,000 mcg PO DAILY@0800 [facility] Last Admin: 05/02/20 09:33 Dose: 1,000 mcg Documented by: Enoxaparin Sodium (Lovenox) 40 mg SC DAILY [facility] Last Admin: 05/02/20 09:34 Dose: 40 mg Documented by: Hydromorphone HCl (Dilaudid Inj) 1 mg IV Q3H PRN PRN PRN Reason: Pain Score 6-10/10 Last Admin: 05/01/20 21:26 Dose: 1 mg Documented by: Piperacillin Sod/Tazobactam (Sod 3.375 gm/ Sodium Chloride) 50 mls @ 12.5 mls/hr IV Q8 [facility] Last Admin: 05/02/20 15:01 Dose: 12.5 mls/hr Documented by: Vancomycin IV Pharmacy to Dose (1 ea/ Sodium Chloride) 500 mls @ 250 mls/hr IV X1 PRN; Protocol PRN Reason: Rx to Dose Sodium Chloride () 250 mls @ 15 mls/hr IV .[id number] PRN PRN Reason: Saline Flush Last Infusion: 05/02/20 05:56 Dose: 0 mls/hr Documented by: Vancomycin HCl 2,000 mg/ (Sodium Chloride) 540 mls @ 250 mls/hr IV Q12H [facility] Last Admin: 05/02/20 16:00 Dose: 250 mls/hr Documented by: Lactated Ringer's () 1,000 mls @ 100 mls/hr IV .Q10H [facility] Last Infusion: 05/02/20 05:40 Dose: 100 mls/hr Documented by: Melatonin (Melatonin) 3 mg PO QHS PRN PRN PRN Reason: INSOMNIA Nicotine (Nicoderm Cq (Pbkc)) 21 mg TRANSDERM. DAILY [facility] Last Admin: 05/02/20 09:35 Dose: 21 mg Documented by: Nutritional Formula (Lactose Free) (Ensure Enlive) 120 ml PO 4X/DAY [facility] Last Admin: 05/02/20 15:01 Dose: 120 ml Documented by: Ondansetron HCl (Zofran) 4 mg IV Q8H PRN PRN PRN Reason: NAUSEA/VOMITING Oxycodone HCl (Oxyir) 5 mg PO Q4H PRN PRN PRN Reason: Pain Score 4-10/10 Last Admin: 05/02/20 09:33 Dose: 5 mg Documented by: Pregabalin (Lyrica) 300 mg PO BID [facility] Last Admin: 05/02/20 09:34 Dose: 300 mg Documented by: Sodium Chloride () 10 - 40 ml IV UD PRN PRN Reason: SALINE FLUSH Last Admin: 04/29/20 22:37 Dose: 10 ml Documented by: Medical Necessity - Tobacco Use Smoking Status: Current every day smoker Route of nutrition/ use of supplements: [] Nutritional Intake: [] IV Site: [] Lopez Catheter: [] - Assessment/Plan Antibiotics: [] Assessment/Plan: [] Active and Suspected Problems Cellulitis of toe of right foot (Acute) Abscess of right foot (Acute) Toe osteo - cx with MRSA. MRI with osteo. OR 05/01 for amputation. Cont vanc, zosyn for now. Will follow
[2020-05-02 20:30] VITALS: BP 142/85; PULSE 73; RESP 16; TEMP 37.2; O2SAT 97
[2020-05-02] MEDS: Atorvastatin Calcium 20 MG Tablet PO (21:50)
[2020-05-02] MEDS: Lactated Ringers 1,000 ML 100 ML IV (21:54)
[2020-05-03 02:30] VITALS: BP 119/64; PULSE 76; RESP 16; TEMP 37.1; O2SAT 99
[2020-05-03 03:56] LABS: Absolute Lymphocyte Count 1.86 X10^3/uL (0.83-4.51); Absolute Neutrophil Count 2.6 X10^3/uL (2.0-7.7); Basophil# 0.05 X10^3/uL; Basophil% 0.9 % (0-1); Eosinophil# 0.33 X10^3/uL; Eosinophils% 6.2 % (0-5); Hematocrit 35.8 % (40-54); Lymphocyte # 1.86 X10^3/ul (4.0); Mean Corp Hgb Conc 33.5 g/dL (32-36); Mean Corpuscular Volume 95.5 fL (80-94); Mean Platelet Vol. 10.4 fl (6.2-12.0); Monocyte# 0.45 X10^3/uL; Monocyte% 8.5 % (0-10); NRBC Flagged by Analyzer 0 % (0-5); Neutrophil # 2.61 X10^3/uL (2.7-7.7); Neutrophil % 49.2 % (47-70); Platelet Count 227 K/mm3 (150-450); RBC Distribution Width CV 12.1 % (11.6-14.6); RBC Distribution Width SD 42.6 fl (35.1-43.9); Red Blood Count 3.75 M/mm3 (4.6-6.2); White Blood Count 5.3 K/mm3 (4.4-11.0)
[2020-05-03 04:17] LABS: Vancomycin, Trough Level 14.5 ug/mL (5.0-15.0)
[2020-05-03 04:21] LABS: AST(SGOT) 9 U/L (15-37); Alanine Aminotransfer ALT/SGPT 17 U/L (16-61); Albumin, Serum 2.8 g/dL (3.2-5.0); Alkaline Phosphatase 84 U/L (45-117); Anion Gap 4 (5-15); BUN 17 mg/dL (7-18); BUN/Creat Ratio 21.9 RATIO (10-20); Bilirubin, Direct 0.06 mg/dL (0.00-0.30); Calcium,Total 8.1 mg/dL (8.5-10.1); Chloride 110 mmol/L (98-107); Creatinine, Serum 0.78 mg/dL (0.70-1.30); EST Glomerular Filtration Rate 110 mL/min (>60); Est Glom Filt Rate - Afr Amer 133 mL/min (>60); Estimated Creatinine Clearance 100.01 ml/min; Glucose 94 mg/dL (74-106); Potassium 4.3 mmol/L (3.5-5.1); Protein, Total 5.8 g/dL (6.4-8.2); Sodium Level 143 mmol/L (136-145)
--- NOTE | 2020-05-03 05:08 | PCM.RX.CS ---
Consult Pharmacy has been consulted to manage selected antiobiotic: Vancomycin Type of Consult: Follow-up Labs: Sodium 143 mmol/L (136-145) 05/03/20 03:35 Potassium 4.3 mmol/L (3.5-5.1) 05/03/20 03:35 Chloride 110 mmol/L (98-107) H 05/03/20 03:35 Carbon Dioxide 29.0 mmol/L (21.0-32.0) 05/03/20 03:35 Anion Gap 4 (5-15) L 05/03/20 03:35 BUN 17 mg/dL (7-18) 05/03/20 03:35 Creatinine 0.78 mg/dL (0.70-1.30) 05/03/20 03:35 Est GFR (MDRD) Af Amer 133 mL/min (>60) 05/03/20 03:35 Est GFR (MDRD) Non-Af 110 mL/min (>60) 05/03/20 03:35 BUN/Creatinine Ratio 21.9 RATIO (10-20) H 05/03/20 03:35 Glucose 94 mg/dL (74-106) 05/03/20 03:35 Vancomycin Trough 14.5 ug/mL (5.0-15.0) 05/03/20 03:35 Microbiology: Microbiology 05/01/20 Unknown Tissue - Toe Gram Stain - Final 05/01/20 Unknown Tissue - Toe Wound Culture - Preliminary Gram negative familia 05/01/20 Unknown Wound - Toe Gram Stain - Final 05/01/20 Unknown Wound - Toe Wound Culture - Preliminary No growth-Final to follow 04/29/20 13:00 Blood Culture (Wb) - Anticubital Right Blood Culture - Preliminary No growth in 48 hours. 04/29/20 12:55 Blood Culture (Wb) - Left Forearm Blood Culture - Preliminary No growth in 48 hours. 04/29/20 13:00 Wound Abcess - Leg Gram Stain - Final 04/29/20 13:00 Wound Abcess - Leg Wound Culture - Final Meth. resistant Staph. aureus Goal Trough: 15-20 mcg/mL Pharmacy Plan for Drug Dosing: Pharmacy Service will continue to monitor and adjust dosing as required. TROUGH 14.5 NO CHANGES, REDRAW TROUGH 05/05 BECAUSE OF CLOSENESS TO GOAL TROUGH Follow-Up Labs: Trough Vancomycin Labs to be done on [date and time ordered]: 05/05 @ 9199
[2020-05-03 08:17] VITALS: BP 131/90; PULSE 65; RESP 16; TEMP 36.7; O2SAT 99
[2020-05-03] MEDS: Aspirin E.C. 81 MG Tablet PO (08:21)
[2020-05-03] MEDS: Cyanocobalamin 500 MCG Tablet 1000 MCG PO (08:21)
--- NOTE | 2020-05-03 09:44 | PN_ITS ---
Patient Problems: Active and Suspected Problems Cellulitis of toe of right foot (Acute) Abscess of right foot (Acute) Osteomyelitis of toe of right foot (Acute) Subjective: Patient was seen for follow up today. No new complaints. No complaints of fever, chills, nausea or vomiting. - Physical Exam Vitals/I&O's: Vital Signs Temp Pulse Resp BP Pulse Ox 98.1 F 65 16 131/90 H 99 05/03/20 08:17 05/03/20 08:17 05/03/20 08:17 05/03/20 08:17 05/03/20 08:17 Oxygen Delivery Method Room Air Weight: 65.31 kg Body Mass Index (BMI) 22.5 Intake and Output for Last 24 Hours 05/01/20 05/02/20 05/03/20 23:59 23:59 23:59 Intake Total 2695.42 / 2695.42 2298.75 / 2538.75 1130 / 1130 Output Total 350 / 350 Balance 2695.42 / 2695.42 2298.75 / 2188.75 780 / 780 General: Alert, Oriented x3, Cooperative, No apparent distress Extremities: Capillary Refill Less than 3 Seconds, No Calf Tenderness, - - right foot: s/p 5th toe amputation - site healing well, no evidence of complication, sutures intact, no dehiscence, no evidence of ischemia or issues at this time. Psych/Mental Status: Normal Affect, Alert and oriented to time, place, person, mood and affect Microbiology Past 72 Hours 05/01/20 Unknown Tissue - Toe Gram Stain - Final 05/01/20 Unknown Tissue - Toe Wound Culture - Final Enterobacter aerogenes 05/01/20 Unknown Wound - Toe Gram Stain - Final 05/01/20 Unknown Wound - Toe Wound Culture - Preliminary No growth-Final to follow 04/29/20 13:00 Blood Culture (Wb) - Anticubital Right Blood Culture - Preliminary No growth in 48 hours. 04/29/20 12:55 Blood Culture (Wb) - Left Forearm Blood Culture - Preliminary No growth in 48 hours. 04/29/20 13:00 Wound Abcess - Leg Gram Stain - Final 04/29/20 13:00 Wound Abcess - Leg Wound Culture - Final Meth. resistant Staph. aureus Laboratory Results 05/03/20 03:35: Sodium 143, Potassium 4.3, Chloride 110 H, Carbon Dioxide 29.0, Anion Gap 4 L, BUN 17, Creatinine 0.78, Estim Creat Clear Calc 100.01, Est GFR (MDRD) Af Amer 133, Est GFR (MDRD) Non-Af 110, BUN/Creatinine Ratio 21.9 H, Glucose 94, Calcium 8.1 L, Total Bilirubin 0.20, Direct Bilirubin 0.06, AST 9 L, ALT 17, Alkaline Phosphatase 84, Total Protein 5.8 L, Albumin 2.8 L, Globulin 3. 0 05/03/20 03:35: Vancomycin Trough 14.5 05/03/20 03:35: WBC 5.3, RBC 3.75 L, Hgb 12.0 L, Hct 35.8 L, MCV 95.5 H, MCH 32.0, MCHC 33.5, RDW Std Deviation 42.6, RDW Coeff of Annie 12.1, Plt Count 227, MPV 10.4, Immature Gran % (Auto) 0.200, Neut % (Auto) 49.2, Lymph % (Auto) 35.0, [place] % (Auto) 8.5, Eos % (Auto) 6.2 H, Baso % (Auto) 0.9, Absolute Neuts (auto) 2.6, Absolute Lymphs (auto) 1.86, Nucleated RBC % 0 Current Medications Acetaminophen (Tylenol) 650 mg PO Q6H PRN PRN PRN Reason: Pain Score 1-10/Temp > 100.7 F Last Admin: 04/30/20 20:38 Dose: 650 mg Documented by: Albuterol Sulfate (Ventolin Aerosols) 2.5 mg INHALATION Q2H PRN PRN PRN Reason: Shortness of Breath/Wheezing Aspirin (Ecotrin) 81 mg PO DAILY@0800 [facility] Last Admin: 05/03/20 08:21 Dose: 81 mg Documented by: Atorvastatin Calcium (Lipitor) 20 mg PO QHS [facility] Last Admin: 05/02/20 21:50 Dose: 20 mg Documented by: Cyanocobalamin (Vitamin B12) 1,000 mcg PO DAILY@0800 [facility] Last Admin: 05/03/20 08:21 Dose: 1,000 mcg Documented by: Enoxaparin Sodium (Lovenox) 40 mg SC DAILY [facility] Last Admin: 05/02/20 09:34 Dose: 40 mg Documented by: Hydromorphone HCl (Dilaudid Inj) 1 mg IV Q3H PRN PRN PRN Reason: Pain Score 6-10/10 Last Admin: 05/01/20 21:26 Dose: 1 mg Documented by: Piperacillin Sod/Tazobactam (Sod 3.375 gm/ Sodium Chloride) 50 mls @ 12.5 mls/hr IV Q8 [facility] Last Admin: 05/03/20 05:11 Dose: 12.5 mls/hr Documented by: Vancomycin IV Pharmacy to Dose (1 ea/ Sodium Chloride) 500 mls @ 250 mls/hr IV X1 PRN; Protocol PRN Reason: Rx to Dose Sodium Chloride () 250 mls @ 15 mls/hr IV .[id number] PRN PRN Reason: Saline Flush Last Infusion: 05/02/20 05:56 Dose: 0 mls/hr Documented by: Vancomycin HCl 2,000 mg/ (Sodium Chloride) 540 mls @ 250 mls/hr IV Q12H [facility] Last Infusion: 05/03/20 06:55 Dose: Infused Documented by: Lactated Ringer's () 1,000 mls @ 100 mls/hr IV .Q10H [facility] Last Admin: 05/02/20 21:56 Dose: Not Given Documented by: Melatonin (Melatonin) 3 mg PO QHS PRN PRN PRN Reason: INSOMNIA Nicotine (Nicoderm Cq (Pbkc)) 21 mg TRANSDERM. DAILY [facility] Last Admin: 05/02/20 09:35 Dose: 21 mg Documented by: Nutritional Formula (Lactose Free) (Ensure Enlive) 120 ml PO 4X/DAY [facility] Last Admin: 05/02/20 21:49 Dose: 120 ml Documented by: Ondansetron HCl (Zofran) 4 mg IV Q8H PRN PRN PRN Reason: NAUSEA/VOMITING Oxycodone HCl (Oxyir) 5 mg PO Q4H PRN PRN PRN Reason: Pain Score 4-10/10 Last Admin: 05/02/20 17:44 Dose: 5 mg Documented by: Pregabalin (Lyrica) 300 mg PO BID [facility] Last Admin: 05/02/20 21:49 Dose: 300 mg Documented by: Sodium Chloride () 10 - 40 ml IV UD PRN PRN Reason: SALINE FLUSH Last Admin: 04/29/20 22:37 Dose: 10 ml Documented by: Medical Necessity - Tobacco Use Smoking Status: Current every day smoker Assessment/Plan All Active Problems Cellulitis of toe of right foot (Acute) Abscess of right foot (Acute) Osteomyelitis of toe of right foot (Acute) Abscess right 5th toe s/p bedside I+D on 04/29/2020, osteomyelitis 5th toe - s/p amputation on 05/01/2020 Ulceration right 5th toe down to tendon Right foot cellulitis Tobacco Dependence Re-evaluation performed. WBC normal. Patient afebrile. s/p right 5th toe amputation - site healing well. Continue to follow cultures, patient on antibiotic therapy - Dr. Llamas following/on consult. Wound care right foot: Painted site w/ betadine soln, applied gauze, kerlix and reece - keep clean, dry and intact. No weightbearing to right forefoot. Use walker for assistance. Recommended smoking/tobacco cessation to optimize foot/ankle health. LEAS reviewed and good flow to foot. DVT Prophylaxis: SCDs. Patient is on Lyrica for Fibromyalgia. Appreciate medicine teams assistance. d/c planning: social work has been consulted as patient is homeless. Will need place to recover once discharged.
[2020-05-03] MEDS: Enoxaparin 40 MG/0.4 ML Syringe SC (09:55)
[2020-05-03] MEDS: Pregabalin 75 MG Capsule 300 MG PO ×2 (09:55→21:17)
--- NOTE | 2020-05-03 10:24 | PN.ID_ITS ---
Patient Problems: Active and Suspected Problems Cellulitis of toe of right foot (Acute) Abscess of right foot (Acute) Osteomyelitis of toe of right foot (Acute) Subjective: Feeling better, no fever, no n/v/d. - Physical Exam Vitals/I&O's: Vital Signs Temp Pulse Resp BP Pulse Ox 98.1 F 65 16 131/90 H 99 05/03/20 08:17 05/03/20 08:17 05/03/20 08:17 05/03/20 08:17 05/03/20 08:17 Oxygen Delivery Method Room Air Weight: 65.31 kg Body Mass Index (BMI) 22.5 Intake and Output for Last 24 Hours 05/01/20 05/02/20 05/03/20 23:59 23:59 23:59 Intake Total 2695.42 / 2695.42 2298.75 / 2538.75 1180 / 1180 Output Total 350 / 350 Balance 2695.42 / 2695.42 2298.75 / 2188.75 830 / 830 General: Alert, Cooperative, No apparent distress Lungs: Clear to auscultation, Normal air movement Cardiovascular: Regular rate, Regular Rhythm Abdomen: Soft, Non Tender, Non-Distended Skin: No rashes Microbiology Past 72 Hours 05/01/20 Unknown Tissue - Toe Gram Stain - Final 05/01/20 Unknown Tissue - Toe Wound Culture - Final Enterobacter aerogenes 05/01/20 Unknown Wound - Toe Gram Stain - Final 05/01/20 Unknown Wound - Toe Wound Culture - Preliminary No growth-Final to follow 04/29/20 13:00 Blood Culture (Wb) - Anticubital Right Blood Culture - Prelim inary No growth in 48 hours. 04/29/20 12:55 Blood Culture (Wb) - Left Forearm Blood Culture - Preliminary No growth in 48 hours. 04/29/20 13:00 Wound Abcess - Leg Gram Stain - Final 04/29/20 13:00 Wound Abcess - Leg Wound Culture - Final Meth. resistant Staph. aureus Laboratory Results 05/03/20 03:35: Sodium 143, Potassium 4.3, Chloride 110 H, Carbon Dioxide 29.0, Anion Gap 4 L, BUN 17, Creatinine 0.78, Estim Creat Clear Calc 100.01, Est GFR (MDRD) Af Amer 133, Est GFR (MDRD) Non-Af 110, BUN/Creatinine Ratio 21.9 H, Glucose 94, Calcium 8.1 L, Total Bilirubin 0.20, Direct Bilirubin 0.06, AST 9 L, ALT 17, Alkaline Phosphatase 84, Total Protein 5.8 L, Albumin 2.8 L, Globulin 3.0 05/03/20 03:35: Vancomycin Trough 14.5 05/03/20 03:35: WBC 5.3, RBC 3.75 L, Hgb 12.0 L, Hct 35.8 L, MCV 95.5 H, MCH 32.0, MCHC 33.5, RDW Std Deviation 42.6, RDW Coeff of Annie 12.1, Plt Count 227, MPV 10.4, Immature Gran % (Auto) 0.200, Neut % (Auto) 49.2, Lymph % (Auto) 35.0, [place] % (Auto) 8.5, Eos % (Auto) 6.2 H, Baso % (Auto) 0.9, Absolute Neuts (auto) 2.6, Absolute Lymphs (auto) 1.86, Nucleated RBC % 0 Current Medications Acetaminophen (Tylenol) 650 mg PO Q6H PRN PRN PRN Reason: Pain Score 1-10/Temp > 100.7 F Last Admin: 04/30/20 20:38 Dose: 650 mg Documented by: Albuterol Sulfate (Ventolin Aerosols) 2.5 mg INHALATION Q2H PRN PRN PRN Reason: Shortness of Breath/Wheezing Aspirin (Ecotrin) 81 mg PO DAILY@0800 [facility] Last Admin: 05/03/20 08:21 Dose: 81 mg Documented by: Atorvastatin Calcium (Lipitor) 20 mg PO QHS [facility] Last Admin: 05/02/20 21:50 Dose: 20 mg Documented by: Cyanocobalamin (Vitamin B12) 1,000 mcg PO DAILY@0800 [facility] Last Admin: 05/03/20 08:21 Dose: 1,000 mcg Documented by: Enoxaparin Sodium (Lovenox) 40 mg SC DAILY [facility] Last Admin: 05/03/20 09:55 Dose: 40 mg Documented by: Hydromorphone HCl (Dilaudid Inj) 1 mg IV Q3H PRN PRN PRN Reason: Pain Score 6-10/10 Last Admin: 05/01/20 21:26 Dose: 1 mg Documented by: Piperacillin Sod/Tazobactam (Sod 3.375 gm/ Sodium Chloride) 50 mls @ 12.5 mls/hr IV Q8 [facility] Last Infusion: 05/03/20 09:15 Dose: Infused Documented by: Vancomycin IV Pharmacy to Dose (1 ea/ Sodium Chloride) 500 mls @ 250 mls/hr IV X1 PRN; Protocol PRN Reason: Rx to Dose Sodium Chloride () 250 mls @ 15 mls/hr IV .[id number] PRN PRN Reason: Saline Flush Last Infusion: 05/02/20 05:56 Dose: 0 mls/hr Documented by: Vancomycin HCl 2,000 mg/ (Sodium Chloride) 540 mls @ 250 mls/hr IV Q12H [facility] Last Infusion: 05/03/20 06:55 Dose: Infused Documented by: Lactated Ringer's () 1,000 mls @ 100 mls/hr IV .Q10H [facility] Last Admin: 05/02/20 21:56 Dose: Not Given Documented by: Melatonin (Melatonin) 3 mg PO QHS PRN PRN PRN Reason: INSOMNIA Nicotine (Nicoderm Cq (Pbkc)) 21 mg TRANSDERM. DAILY [facility] Last Admin: 05/03/20 09:55 Dose: 21 mg Documented by: Nutritional Formula (Lactose Free) (Ensure Enlive) 120 ml PO 4X/DAY [facility] Last Admin: 05/03/20 09:54 Dose: 120 ml Documented by: Ondansetron HCl (Zofran) 4 mg IV Q8H PRN PRN PRN Reason: NAUSEA/VOMITING Oxycodone HCl (Oxyir) 5 mg PO Q4H PRN PRN PRN Reason: Pain Score 4-10/10 Last Admin: 05/02/20 17:44 Dose: 5 mg Documented by: Pregabalin (Lyrica) 300 mg PO BID [facility] Last Admin: 05/03/20 09:55 Dose: 300 mg Documented by: Sodium Chloride () 10 - 40 ml IV UD PRN PRN Reason: SALINE FLUSH Last Admin: 04/29/20 22:37 Dose: 10 ml Documented by: Medical Necessity - Tobacco Use Smoking Status: Current every day smoker Route of nutrition/ use of supplements: [] Nutritional Intake: [] IV Site: [] Lopez Catheter: [] - Assessment/Plan Antibiotics: [] Assessment/Plan: [] Active and Suspected Problems Cellulitis of toe of right foot (Acute) Abscess of right foot (Acute) Toe osteo - cx with MRSA. MRI with osteo. OR 05/01 for amputation. Clearance cx neg so far. Surg cx with enterobacter. Ok for d/c home on bactrim for 5 more days, wrote rx. ID Followup prn. Will follow, d/w Dr. Nam
--- NOTE | 2020-05-03 10:58 | PCM.DC ---
- Discharge Diagnoses Current Active Problems: Current Active and Chronic Problems Cellulitis of toe of right foot (Acute) Abscess of right foot (Acute) Raynaud's disease (Chronic) Osteomyelitis of toe of right foot (Acute) You will use the following diet at home:: Cardiac Your food should be the consistency of: Regular Your liquids should be the consistency of: Regular/Thin Discharge Activity: Return to Normal Activity Weight Bearing Status: Weight bearing as tolerated Call your doctor if you observe: Fever of 101 or Higher, Coldness, Increased Pain Instructions: ED Cellulitis, ED Abscess Antibiotic Treatment Only Allergies/Adverse Reactions: Allergies Penicillins Adverse Reaction (Verified 04/27/20 08:55) Vomiting Medications to take at Discharge Pregabalin [Lyrica] 300 mg PO BID PRN 11/07/15 Smz/Tmp Ds [Bactrim Ds] 1 tab PO BID #10 tab 05/03/20 The following prescriptions were given: Smz/Tmp Ds [Bactrim Ds] 1 tab PO BID #10 tab Transmission Status: Received by [id number] Primary Care Physician: Alphonse Roberts MD [Primary Care Provider] - Please follow up with your Primary Care Physician in: 1-2 weeks Test Results: Test results from this visit will be discussed in further detail at your follow-up appointment, if applicable. Please Follow Up With: Adan Llamas MD When: 1-2 weeks Please Follow Up With: Castillo Ramirez DPM When: 1-2 weeks Proposed Discharge Date: 05/03/20
--- NOTE | 2020-05-03 11:03 | PN_ITS ---
Patient Problems: Active and Suspected Problems Cellulitis of toe of right foot (Acute) Abscess of right foot (Acute) Osteomyelitis of toe of right foot (Acute) Subjective: Patient seen today. He had no complaints and wanted to be discharged home. Review of systems otherwise negative. Labs and vitals reviewed. Home medication reviewed and reconciled. Vitals/I&O's: Vital Signs Temp Pulse Resp BP Pulse Ox 98.1 F 65 16 131/90 H 99 05/03/20 08:17 05/03/20 08:17 05/03/20 08:17 05/03/20 08:17 05/03/20 08:17 Oxygen Delivery Method Room Air Weight: 143 lb 15.742 oz Body Mass Index (BMI) 22.5 Intake and Output for Last 24 Hours 05/01/20 05/02/20 05/03/20 23:59 23:59 23:59 Intake Total 2695.42 / 2695.42 2298.75 / 2538.75 1180 / 1180 Output Total 350 / 350 Balance 2695.42 / 2695.42 2298.75 / 2188.75 830 / 830 General: Alert, Oriented x3, Cooperative HEENT: Atraumatic, PERRLA, EOMI, Normocephalic Oral: Moist Mucosa Neck: Supple, No JVD, Negative Carotid Bruits Lungs: Clear to auscultation, Normal air movement, No rhonchi, No wheeze, No rales Cardiovascular: Regular rate, Regular Rhythm, Normal S1, Normal S2, No murmurs Abdomen: Bowel Sounds Present, Soft, Non Tender, Non-Distended, No Hepato- splenomegaly Extremities: No clubbing, No cyanosis, No edema, Capillary Refill Less than 3 Seconds, - - right foot wrapped in bandage Skin: No rashes, No breakdown Musculoskeletal: No Tenderness to Palpation of Joints or Extremities Lymphatic: No Cervical, Supraclavicular, or Inguinal Adenopathy Neurological: Cranial nerves II-XII grossly intact, Neuro grossly intact, Motor Exam 5/5 strength throughout Psych/Mental Status: Normal Affect, Appropriate, Alert and oriented to time, place, person, mood and affect Microbiology Past 72 Hours 05/01/20 Unknown Wound - Toe Gram Stain - Final 05/01/20 Unknown Wound - Toe Wound Culture - Preliminary No growth-Final to follow 05/01/20 Unknown Wound - Toe Anaerobic Culture - Preliminary No growth in 48 hours. 05/01/20 Unknown Tissue - Toe Gram Stain - Final 05/01/20 Unknown Tissue - Toe Wound Culture - Final Enterobacter aerogenes 04/29/20 13:00 Blood Culture (Wb) - Anticubital Right Blood Culture - Preliminary No growth in 48 hours. 04/29/20 12:55 Blood Culture (Wb) - Left Forearm Blood Culture - Preliminary No growth in 48 hours. 04/29/20 13:00 Wound Abcess - Leg Gram Stain - Final 04/29/20 13:00 Wound Abcess - Leg Wound Culture - Final Meth. resistant Staph. aureus Laboratory Results 05/03/20 03:35: Sodium 143, Potassium 4.3, Chloride 110 H, Carbon Dioxide 29.0, Anion Gap 4 L, BUN 17, Creatinine 0.78, Estim Creat Clear Calc 100.01, Est GFR (MDRD) Af Amer 133, Est GFR (MDRD) Non-Af 110, BUN/Creatinine Ratio 21.9 H, Glucose 94, Calcium 8.1 L, Total Bilirubin 0.20, Direct Bilirubin 0.06, AST 9 L, ALT 17, Alkaline Phosphatase 84, Total Protein 5.8 L, Albumin 2.8 L, Globulin 3.0 05/03/20 03:35: Vancomycin Trough 14.5 05/03/20 03:35: WBC 5.3, RBC 3.75 L, Hgb 12.0 L, Hct 35.8 L, MCV 95.5 H, MCH 32. 0, MCHC 33.5, RDW Std Deviation 42.6, RDW Coeff of Annie 12.1, Plt Count 227, MPV 10.4, Immature Gran % (Auto) 0.200, Neut % (Auto) 49.2, Lymph % (Auto) 35.0, [place] % (Auto) 8.5, Eos % (Auto) 6.2 H, Baso % (Auto) 0.9, Absolute Neuts (auto) 2.6, Absolute Lymphs (auto) 1.86, Nucleated RBC % 0 Diagnostic Data Foot X-Ray 04/29/20 12:42 IMPRESSION: Soft tissue swelling fifth digit Electronically Signed: Bryan Reid MD at 13:27 EDT , Service support , Lower Extremity MRI 04/30/20 11:04 IMPRESSION: Bone edema of the fifth proximal phalanx suggestive of osteomyelitis. Mild arthrosis of the first metatarsophalangeal joint with subchondral lesions. Small intermetatarsal neuroma of the second webspace. Electronically Signed: Juan Youssef MD at 12:45 EDT Tel , Service support , Toe X-Ray 05/01/20 12:18 IMPRESSION: Status post right fifth toe amputation. Electronically Signed: Ryan Hui MD at 16:10 EDT , Service support , Current Medications Acetaminophen (Tylenol) 650 mg PO Q6H PRN PRN PRN Reason: Pain Score 1-10/Temp > 100.7 F Last Admin: 04/30/20 20:38 Dose: 650 mg Documented by: Albuterol Sulfate (Ventolin Aerosols) 2.5 mg INHALATION Q2H PRN PRN PRN Reason: Shortness of Breath/Wheezing Aspirin (Ecotrin) 81 mg PO DAILY@0800 [facility] Last Admin: 05/03/20 08:21 Dose: 81 mg Documented by: Atorvastatin Calcium (Lipitor) 20 mg PO QHS [facility] Last Admin: 05/02/20 21:50 Dose: 20 mg Documented by: Cyanocobalamin (Vitamin B12) 1,000 mcg PO DAILY@0800 [facility] Last Admin: 05/03/20 08:21 Dose: 1,000 mcg Documented by: Enoxaparin Sodium (Lovenox) 40 mg SC DAILY [facility] Last Admin: 05/03/20 09:55 Dose: 40 mg Documented by: Hydromorphone HCl (Dilaudid Inj) 1 mg IV Q3H PRN PRN PRN Reason: Pain Score 6-10/10 Last Admin: 05/01/20 21:26 Dose: 1 mg Documented by: Piperacillin Sod/Tazobactam (Sod 3.375 gm/ Sodium Chloride) 50 mls @ 12.5 mls/hr IV Q8 [facility] Last Infusion: 05/03/20 09:15 Dose: Infused Documented by: Vancomycin IV Pharmacy to Dose (1 ea/ Sodium Chloride) 500 mls @ 250 mls/hr IV X1 PRN; Protocol PRN Reason: Rx to Dose Sodium Chloride () 250 mls @ 15 mls/hr IV .[id number] PRN PRN Reason: Saline Flush Last Infusion: 05/02/20 05:56 Dose: 0 mls/hr Documented by: Vancomycin HCl 2,000 mg/ (Sodium Chloride) 540 mls @ 250 mls/hr IV Q12H [facility] Last Infusion: 05/03/20 06:55 Dose: Infused Documented by: Lactated Ringer's () 1,000 mls @ 100 mls/hr IV .Q10H [facility] Last Admin: 05/02/20 21:56 Dose: Not Given Documented by: Melatonin (Melatonin) 3 mg PO QHS PRN PRN PRN Reason: INSOMNIA Nicotine (Nicoderm Cq (Pbkc)) 21 mg TRANSDERM. DAILY [facility] Last Admin: 05/03/20 09:55 Dose: 21 mg Documented by: Nutritional Formula (Lactose Free) (Ensure Enlive) 120 ml PO 4X/DAY [facility] Last Admin: 05/03/20 09:54 Dose: 120 ml Documented by: Ondansetron HCl (Zofran) 4 mg IV Q8H PRN PRN PRN Reason: NAUSEA/VOMITING Oxycodone HCl (Oxyir) 5 mg PO Q4H PRN PRN PRN Reason: Pain Score 4-10/10 Last Admin: 05/02/20 17:44 Dose: 5 mg Documented by: Pregabalin (Lyrica) 300 mg PO BID [facility] Last Admin: 05/03/20 09:55 Dose: 300 mg Documented by: Sodium Chloride () 10 - 40 ml IV UD PRN PRN Reason: SALINE FLUSH Last Admin: 04/29/20 22:37 Dose: 10 ml Documented by: STROKE Vital Signs/Narrative: Vital Signs Temp Pulse Resp BP Pulse Ox 05/03/20 08:17 98.1 F 65 16 131/90 H 99 Medical Necessity - Tobacco Use Smoking Status: Current every day smoker Assessment/Plan All Active Problems Cellulitis of toe of right foot (Acute) Abscess of right foot (Acute) Osteomyelitis of toe of right foot (Acute) 1. Right toe osteomyelitis with abscess s/p incision and drainage * MRI confirmed osteomyelitis * ID on board * ok for dc home today, on PO bactrim x 5 days * wound culture was positive for MRSA * 2. Raynaud's disease with vasculitis: on aspirin 81mg daily. Will need to follow up with rheumoatologis on outpatient basis DVT prophylaxis: lovenox Plan : stable for discharge home from hospitalist standpoint Discussed with Dr Ramirez Inpatient E&M: [id number] Subs Hosp L2
[2020-05-03] MEDS: Lactated Ringers 1,000 ML 100 ML IV (13:56)
[2020-05-03 14:03] VITALS: BP 107/61; PULSE 79; RESP 16; TEMP 36.8; O2SAT 97
[2020-05-03] MEDS: oxyCODONE 5 MG Tablet PO (17:14)
[2020-05-03] MEDS: Acetaminophen 325 MG Tablet 650 MG PO (17:15)
[2020-05-03 21:10] VITALS: BP 135/90; PULSE 71; RESP 18; TEMP 36.7; O2SAT 97
[2020-05-03] MEDS: Atorvastatin Calcium 20 MG Tablet PO (21:17)
[2020-05-04 02:45] VITALS: BP 117/77; PULSE 65; RESP 16; TEMP 36.6; O2SAT 96
[2020-05-04] MEDS: Lactated Ringers 1,000 ML 100 ML IV (02:47)
[2020-05-04] MEDS: oxyCODONE 5 MG Tablet PO (06:33)
--- NOTE | 2020-05-04 07:57 | PN_ITS ---
Patient Problems: Active and Suspected Problems Cellulitis of toe of right foot (Acute) Abscess of right foot (Acute) Osteomyelitis of toe of right foot (Acute) Subjective: Patient was seen this morning for follow up on foot. He relates to foot pain when dangling foot down for more than 4 minutes. Otherwise patient with no new complaints. - Physical Exam Vitals/I&O's: Vital Signs Temp Pulse Resp BP Pulse Ox 97.8 F 65 16 117/77 96 05/04/20 02:45 05/04/20 02:45 05/04/20 02:45 05/04/20 02:45 05/04/20 02:45 Oxygen Delivery Method Room Air Weight: 65.31 kg Body Mass Index (BMI) 22.5 Intake and Output for Last 24 Hours 05/02/20 05/03/20 05/04/20 23:59 23:59 23:59 Intake Total 2298.75 / 2538.75 4370 / 4370 830 / 830 Output Total 350 / 350 Balance 2298.75 / 2188.75 4020 / 4020 830 / 830 General: Alert, Oriented x3, Cooperative, No apparent distress Microbiology Past 72 Hours 05/01/20 Unknown Tissue - Toe Gram Stain - Final 05/01/20 Unknown Tissue - Toe Wound Culture - Final Enterobacter aerogenes 05/01/20 Unknown Tissue - Toe Anaerobic Culture - Preliminary Checking for anaerobes, further studies to follow. 05/01/20 Unknown Wound - Toe Gram Stain - Final 05/01/20 Unknown Wound - Toe Wound Culture - Preliminary No growth-Final to follow 05/01/20 Unknown Wound - Toe Anaerobic Culture - Preliminary No growth in 48 hours. 04/29/20 13:00 Blood Culture (Wb) - Anticubital Right Blood Culture - Preliminary No growth in 48 hours. 04/29/20 12:55 Blood Culture (Wb) - Left Forearm Blood Culture - Preliminary No growth in 48 hours. 04/29/20 13:00 Wound Abcess - Leg Gram Stain - Final 04/29/20 13:00 Wound Abcess - Leg Wound Culture - Final Meth. resistant Staph. aureus Current Medications Acetaminophen (Tylenol) 650 mg PO Q6H PRN PRN PRN Reason: Pain Score 1-10/Temp > 100.7 F Last Admin: 05/03/20 17:15 Dose: 650 mg Documented by: Albuterol Sulfate (Ventolin Aerosols) 2.5 mg INHALATION Q2H PRN PRN PRN Reason: Shortness of Breath/Wheezing Aspirin (Ecotrin) 81 mg PO DAILY@0800 [facility] Last Admin: 05/03/20 08:21 Dose: 81 mg Documented by: Atorvastatin Calcium (Lipitor) 20 mg PO QHS [facility] Last Admin: 05/03/20 21:17 Dose: 20 mg Documented by: Cyanocobalamin (Vitamin B12) 1,000 mcg PO DAILY@0800 [facility] Last Admin: 05/03/20 08:21 Dose: 1,000 mcg Documented by: Enoxaparin Sodium (Lovenox) 40 mg SC DAILY [facility] Last Admin: 05/03/20 09:55 Dose: 40 mg Documented by: Hydromorphone HCl (Dilaudid Inj) 1 mg IV Q3H PRN PRN PRN Reason: Pain Score 6-10/10 Last Admin: 05/01/20 21:26 Dose: 1 mg Documented by: Piperacillin Sod/Tazobactam (Sod 3.375 gm/ Sodium Chloride) 50 mls @ 12.5 mls/hr IV Q8 [facility] Last Admin: 05/04/20 06:28 Dose: 12.5 mls/hr Documented by: Vancomycin IV Pharmacy to Dose (1 ea/ Sodium Chloride) 500 mls @ 250 mls/hr IV X1 PRN; Protocol PRN Reason: Rx to Dose Sodium Chloride () 250 mls @ 15 mls/hr IV .[id number] PRN PRN Reason: Saline Flush Last Infusion: 05/02/20 05:56 Dose: 0 mls/hr Documented by: Vancomycin HCl 2,000 mg/ (Sodium Chloride) 540 mls @ 250 mls/hr IV Q12H [facility] Last Infusion: 05/04/20 06:25 Dose: Infused Documented by: Lactated Ringer's () 1,000 mls @ 100 mls/hr IV .Q10H [facility] Last Admin: 05/04/20 02:47 Dose: 100 mls/hr Documented by: Melatonin (Melatonin) 3 mg PO QHS PRN PRN PRN Reason: INSOMNIA Nicotine (Nicoderm Cq (Pbkc)) 21 mg TRANSDERM. DAILY [facility] Last Admin: 05/03/20 09:55 Dose: 21 mg Documented by: Nutritional Formula (Lactose Free) (Ensure Enlive) 120 ml PO 4X/DAY [facility] Last Admin: 05/03/20 21:17 Dose: 120 ml Documented by: Ondansetron HCl (Zofran) 4 mg IV Q8H PRN PRN PRN Reason: NAUSEA/VOMITING Oxycodone HCl (Oxyir) 5 mg PO Q4H PRN PRN PRN Reason: Pain Score 4-10/10 Last Admin: 05/04/20 06:33 Dose: 5 mg Documented by: Pregabalin (Lyrica) 300 mg PO BID [facility] Last Admin: 05/03/20 21:17 Dose: 300 mg Documented by: Sodium Chloride () 10 - 40 ml IV UD PRN PRN Reason: SALINE FLUSH Last Admin: 04/29/20 22:37 Dose: 10 ml Documented by: Medical Necessity - Tobacco Use Smoking Status: Current every day smoker Assessment/Plan All Active Problems Cellulitis of toe of right foot (Acute) Abscess of right foot (Acute) Osteomyelitis of toe of right foot (Acute) Abscess right 5th toe s/p bedside I+D on 04/29/2020, osteomyelitis 5th toe - s/p amputation on 05/01/2020 Ulceration right 5th toe down to tendon Right foot cellulitis Tobacco Dependence Re-evaluation performed. Patient afebrile. s/p right 5th toe amputation - site healing well. Patient completing antibiotic therapy/Bactrim - Dr. Llamas following/on consult. Wound care right foot: Painted site w/ betadine soln, applied gauze, kerlix and reece - keep clean, dry and intact. No weightbearing to right forefoot. Use walker for assistance. Recommended smoking/tobacco cessation to optimize foot/ankle health. LEAS reviewed and good flow to foot. DVT Prophylaxis: SCDs. Patient is on Lyrica for Fibromyalgia. Appreciate medicine teams assistance. d/c planning: social work has been consulted as patient is homeless. Will need place to recover once discharged. I was informed yesterday by social work that patient will go to his daughters house to recovery, however upon speaking with patient's daughter she was not aware of this plan and states patient cannot come there to recover due to several issues. Patient will not be discharged until we can confirm patient will have place to go to properly recover.
[2020-05-04] MEDS: Pregabalin 75 MG Capsule 300 MG PO (08:18)
[2020-05-04] MEDS: Aspirin E.C. 81 MG Tablet PO (08:18)
[2020-05-04] MEDS: Cyanocobalamin 500 MCG Tablet 1000 MCG PO (08:18)
[2020-05-04] MEDS: Enoxaparin 40 MG/0.4 ML Syringe SC (08:18)
[2020-05-04 08:55] VITALS: BP 137/71; PULSE 74; RESP 18; TEMP 36.6; O2SAT 95
--- NOTE | 2020-05-04 09:51 | CASEMGMT ---
Social Work ANDERSON met with pt in room to discuss d/c plan. Pt was in process of texting with dgt Natalee and pt read text to SW. Natalee is working on finding a place for pt to stay with [facility] and pt needs to be patient. Pt also stating that he called [facility] and they stated pt could go there but that pt would need to be at [facility] by 1pm. ANDERSON placed call to [facility] and Yen states there is a bed available for pt and he would need to be at the [facility] between the hours of 1 and 7 pm today to get into the [facility]. ANDERSON met with pt and informed of this and although hesitant to idea, pt expresses he is willing to go to the prison until his dgt is able to secure him an apartment through [facility]. VM left with Dr. Lorenzo to discuss discharge plan. Plan: Discharge to [facility], able to accept pt from 1pm-7pm today. JACK Curtis
--- NOTE | 2020-05-04 10:34 | DCINST_ITS ---
Discharge Diet: No Restrictions Discharge Activity: May Shower - with shower bag only, - - use walker or cane to help keep weight off of right foot Weight Bearing Status: Partial weight bearing - heel touch with surgical shoe to surgical limb for transfers. Otherwise, keep full weight off of foot Keep extremity elevated above heart level: Right Leg Call your doctor if your incision/area has: Continuous Slow Oozing, Sudden Increased Bleeding, Increased Pain/ Swelling, Increased Redness, Foul Smelling Discharge, Swelling at the incision site Call your doctor if you observe: Fever of 101 or Higher, Coldness, Increased Pain, Change in Color, Calf discomfort, Uncontrolled pain Cleanse incision/area with: Keep Dressing Clean & Dry Additional Dressing/Incision Instructions:: discontinue smoking activities Instructions: ED Abscess Antibiotic Treatment Only, ED Cellulitis Allergies/Adverse Reactions: Allergies Penicillins Adverse Reaction (Verified 04/27/20 08:55) Vomiting Medications to take at Discharge Pregabalin [Lyrica] 300 mg PO BID PRN 11/07/15 Smz/Tmp Ds [Bactrim Ds] 1 tab PO BID #10 tab 05/03/20 Oxycodone HCl/Acetaminophen [Percocet 5/325] 1 tablet PO Q6H PRN PRN 7 Days #28 tablet 05/04/20 The following prescriptions were given: Smz/Tmp Ds [Bactrim Ds] 1 tab PO BID #10 tab Transmission Status: Received by [facility] Oxycodone HCl/Acetaminophen [Percocet 5/325] 1 tablet PO Q6H PRN PRN 7 Days #28 tablet PRN Reason: Pain Score 6-10/10 Transmission Status: Sent to [facility] Primary Care Physician: Alphonse Roberts MD [Primary Care Provider] - Please follow up with your Primary Care Physician in: 1-2 weeks Test Results: Test results from this visit will be discussed in further detail at your follow- up appointment, if applicable. Please Follow Up With: Adan Llamas MD When: 1-2 weeks Please Follow Up With: Lisa Lorenzo DPM When: 1 week at [facility]. Call [phone] Proposed Discharge Date: 05/03/20
--- NOTE | 2020-05-04 10:37 | DS.PCM_ITS ---
Discharge Date and Diagnosis Date of Admission: 04/29/20 Date of Discharge: 05/04/20 - Primary Discharge Diagnosis Acute Problems: Active Problems Cellulitis of toe of right foot (Acute) Abscess of right foot (Acute) Osteomyelitis of toe of right foot (Acute) - Secondary Discharge Diagnosis Chronic Problems: Chronic Problems Raynaud's disease (Chronic) Tobacco abuse (Chronic) homeless Hospital Course and Treatment Imaging Results: Preoperative x-rays: No acute fracture or dislocation of the foot. No soft tissue emphysema foreign body or gross osseous destruction. Preoperative MRI: Increase intensity of the proximal phalanx of the fifth right toe suggest osteomyelitis. No additional abscess or Charcot noted Postoperative foot x-ray, right: Status post fifth toe amputation without new acute injuries Hospitalist was consulted for medical management including action status, ray nods, and smoking habits Social work was consulted for discharge planning and homeless status Physical therapy was consulted for gait training to ensure he can keep weight off of the surgical site Rheumatology will be consulted in the outpatient setting after discharge for management of ray nods condition Operations: - - I&D left index finger.Right fifth toe amputation Procedures: - - Bedside incision and drainage performed at time of admission Summary of Care Provided: The patient is a 54 year old M was admitted for right foot infection that failed outpatient oral antibiotics. He was started on IV antibiotics and a bedside incision and drainage was performed. He fails to demonstrate adequate improvement and an MRI was ordered. Osteomyelitis was indicated and he was offered wound care versus amputation of this toe. His social work issue such as homelessness and difficulty with following up with appointments was taken into consideration. An amputation was performed on 05-01-2020 to remove the nidus of infection. His culture results were reviewed and he was placed on appropriate oral antibiotic course for an additional week. Offloading was recommended and he was seen by physical therapy while in house. Smoking cessation was advised. His social work issues were worked through and [facility] will [facility]. His daughter is helping him find temporary placement in [employer] housing however this will take some time to get set up. He demonstrated adequate improvement with his a forementioned treatment plan in house and will follow-up on outpatient basis. - Physical Exam Vitals/I&O's: Vital Signs Temp Pulse Resp BP Pulse Ox 97.9 F 74 18 137/71 H 95 05/04/20 08:55 05/04/20 08:55 05/04/20 08:55 05/04/20 08:55 05/04/20 08:55 Oxygen Delivery Method Room Air Weight: 65.31 kg Body Mass Index (BMI) 22.5 Intake and Output for Last 24 Hours 05/02/20 05/03/20 05/04/20 23:59 23:59 23:59 Intake Total 2298.75 / 2538.75 4370 / 4370 830 / 830 Output Total 350 / 350 Balance 2298.75 / 2188.75 4020 / 4020 830 / 830 General: Alert, Oriented x3, Cooperative HEENT: Atraumatic Extremities: No cyanosis, Capillary Refill Less than 3 Seconds - All digits right foot and amputation stump site right foot, No Calf Tenderness, Diminished Peripheral Pulses - Palpable DP pulse, Edema - Resolved the right foot Skin: Incision - Well aligned and coapted without gapping, necrosis, or infection. Erythema, edema, inflammation have resolved. There is no purulence Musculoskeletal: No Tenderness to Palpation of Joints or Extremities, Muscle Wasting - Intrinsic minus foot, Tenderness - Tenderness with surgical site palpation. No bogginess or fluctuance. The compartments of the right foot remained soft Neurological: Sensory exam intact to light touch and pain Psych/Mental Status: Normal Affect, Appropriate Microbiology Past 72 Hours 05/01/20 Unknown Wound - Toe Gram Stain - Final 05/01/20 Unknown Wound - Toe Wound Culture - Preliminary Staphylococcus species 05/01/20 Unknown Wound - Toe Anaerobic Culture - Preliminary No growth in 48 hours. 05/01/20 Unknown Tissue - Toe Gram Stain - Final 05/01/20 Unknown Tissue - Toe Wound Culture - Final Enterobacter aerogenes 05/01/20 Unknown Tissue - Toe Anaerobic Culture - Preliminary Checking for anaerobes, further studies to follow. 04/29/20 13:00 Blood Culture (Wb) - Anticubital Right Blood Culture - Pr eliminary No growth in 48 hours. 04/29/20 12:55 Blood Culture (Wb) - Left Forearm Blood Culture - Preliminary No growth in 48 hours. 04/29/20 13:00 Wound Abcess - Leg Gram Stain - Final 04/29/20 13:00 Wound Abcess - Leg Wound Culture - Final Meth. resistant Staph. aureus Laboratory Results 05/01/20 : S.aureus Protein A PCR POSITIVE H, MRSA (PCR) POSITIVE H Current Medications Acetaminophen (Tylenol) 650 mg PO Q6H PRN PRN PRN Reason: Pain Score 1-10/Temp > 100.7 F Last Admin: 05/03/20 17:15 Dose: 650 mg Documented by: Albuterol Sulfate (Ventolin Aerosols) 2.5 mg INHALATION Q2H PRN PRN PRN Reason: Shortness of Breath/Wheezing Aspirin (Ecotrin) 81 mg PO DAILY@0800 [facility] Last Admin: 05/04/20 08:18 Dose: 81 mg Documented by: Atorvastatin Calcium (Lipitor) 20 mg PO QHS [facility] Last Admin: 05/03/20 21:17 Dose: 20 mg Documented by: Cyanocobalamin (Vitamin B12) 1,000 mcg PO DAILY@0800 [facility] Last Admin: 05/04/20 08:18 Dose: 1,000 mcg Documented by: Enoxaparin Sodium (Lovenox) 40 mg SC DAILY [facility] Last Admin: 05/04/20 08:18 Dose: 40 mg Documented by: Hydromorphone HCl (Dilaudid Inj) 1 mg IV Q3H PRN PRN PRN Reason: Pain Score 6-10/10 Last Admin: 05/01/20 21:26 Dose: 1 mg Documented by: Piperacillin Sod/Tazobactam (Sod 3.375 gm/ Sodium Chloride) 50 mls @ 12.5 mls/hr IV Q8 [facility] Last Admin: 05/04/20 06:28 Dose: 12.5 mls/hr Documented by: Vancomycin IV Pharmacy to Dose (1 ea/ Sodium Chloride) 500 mls @ 250 mls/hr IV X1 PRN; Protocol PRN Reason: Rx to Dose Sodium Chloride () 250 mls @ 15 mls/hr IV .[id number] PRN PRN Reason: Saline Flush Last Infusion: 05/02/20 05:56 Dose: 0 mls/hr Documented by: Vancomycin HCl 2,000 mg/ (Sodium Chloride) 540 mls @ 250 mls/hr IV Q12H [facility] Last Infusion: 05/04/20 06:25 Dose: Infused Documented by: Lactated Ringer's () 1,000 mls @ 100 mls/hr IV .Q10H [facility] Last Admin: 05/04/20 02:47 Dose: 100 mls/hr Documented by: Melatonin (Melatonin) 3 mg PO QHS PRN PRN PRN Reason: INSOMNIA Nicotine (Nicoderm Cq (Pbkc)) 21 mg TRANSDERM. DAILY [facility] Last Admin: 05/04/20 08:19 Dose: 21 mg Documented by: Nutritional Formula (Lactose Free) (Ensure Enlive) 120 ml PO 4X/DAY [facility] Last Admin: 05/04/20 08:26 Dose: 120 ml Documented by: Ondansetron HCl (Zofran) 4 mg IV Q8H PRN PRN PRN Reason: NAUSEA/VOMITING Oxycodone HCl (Oxyir) 5 mg PO Q4H PRN PRN PRN Reason: Pain Score 4-10/10 Last Admin: 05/04/20 06:33 Dose: 5 mg Documented by: Pregabalin (Lyrica) 300 mg PO BID [facility] Last Admin: 05/04/20 08:18 Dose: 300 mg Documented by: Sodium Chloride () 10 - 40 ml IV UD PRN PRN Reason: SALINE FLUSH Last Admin: 04/29/20 22:37 Dose: 10 ml Documented by: Discharge Diet: No Restrictions Discharge Activity: May Shower - with shower bag only, - - use walker or cane to help keep weight off of right foot Weight Bearing Status: Partial weight bearing - heel touch with surgical shoe to surgical limb for transfers. Otherwise, keep full weight off of foot Keep extremity elevated above heart level: Right Leg Call your doctor if your incision/area has: Continuous Slow Oozing, Sudden Increased Bleeding, Increased Pain/ Swelling, Increased Redness, Foul Smelling Discharge, Swelling at the incision site Call your doctor if you observe: Fever of 101 or Higher, Coldness, Increased Pain, Change in Color, Calf discomfort, Uncontrolled pain Cleanse incision/area with: Keep Dressing Clean & Dry Additional Dressing/Incision Instructions:: discontinue smoking activities Home Medications: Medications to take at Discharge Pregabalin [Lyrica] 300 mg PO BID PRN 11/07/15 Oxycodone HCl/Acetaminophen [Percocet 5/325] 1 tab PO Q6H PRN PRN 7 Days #28 tab 05/04/20 Smz/Tmp Ds [Bactrim Ds] 1 tab PO BID #60 tab 05/04/20 Following Prescriptions Were Given to Patient: Smz/Tmp Ds [Bactrim Ds] 1 tab PO BID #60 tab Transmission Status: Received by [facility] Oxycodone HCl/Acetaminophen [Percocet 5/325] 1 tab PO Q6H PRN PRN 7 Days #28 tab PRN Reason: Pain Score 6-06/30 Transmission Status: Received by [facility] Primary Care Physician: Alphonse Roberts MD [Primary Care Provider] - Please follow up with your Primary Care Physician in: 1-2 weeks Please Follow Up With: Adan Llamas MD When: 1-2 weeks Please Follow Up With: Lisa Lorenzo DPM When: 1 week at [facility]. Call [phone] Please Follow Up With: transportation maintenance operator When: A referral will be provided Patient Instructions: ED Abscess Antibiotic Treatment Only, ED Cellulitis Minutes spent on discharge:: 45 Patient Condition:: Stable Medical Necessity - Tobacco Use Smoking Status: Current every day smoker Meaningful Use Info Meaningful Use Diagnoses (Choose all that apply): None applicable
--- NOTE | 2020-05-04 12:06 | PN_ITS ---
Patient Problems: Active and Suspected Problems Cellulitis of toe of right foot (Acute) Abscess of right foot (Acute) Osteomyelitis of toe of right foot (Acute) Subjective: Patient seen and examined. He has no complaints today. He could not be discharged yesterday as he did not have anywhere to go, due to him being homeless. Labs and vitals reviewed. He has remained hemodynamically stable. Vitals/I&O's: Vital Signs Temp Pulse Resp BP Pulse Ox 97.9 F 74 18 137/71 H 95 05/04/20 08:55 05/04/20 08:55 05/04/20 08:55 05/04/20 08:55 05/04/20 08:55 Oxygen Delivery Method Room Air Weight: 143 lb 15.742 oz Body Mass Index (BMI) 22.5 Intake and Output for Last 24 Hours 05/02/20 05/03/20 05/04/20 23:59 23:59 23:59 Intake Total 2298.75 / 2538.75 4370 / 4370 2811.67 / 2811.67 Output Total 350 / 350 Balance 2298.75 / 2188.75 4020 / 4020 2811.67 / 2811.67 General: Alert, Oriented x3, Cooperative HEENT: Atraumatic, PERRLA, EOMI, Normocephalic Oral: Moist Mucosa Neck: Supple, No JVD, Negative Carotid Bruits Lungs: Clear to auscultation, Normal air movement, No rhonchi, No wheeze, No rales Cardiovascular: Regular rate, Regular Rhythm, Normal S1, Normal S2, No murmurs Abdomen: Bowel Sounds Present, Soft, Non Tender, Non-Distended, No Hepato- splenomegaly Extremities: No clubbing, No cyanosis, No edema, Capillary Refill Less than 3 Seconds, - - right foot wrapped in bandage Skin: No rashes, No breakdown Musculoskeletal: No Tenderness to Palpation of Joints or Extremities Lymphatic: No Cervical, Supraclavicular, or Inguinal Adenopathy Neurological: Cranial nerves II-XII grossly intact, Neuro grossly intact, Motor Exam 5/5 strength throughout Psych/Mental Status: Normal Affect, Appropriate, Alert and oriented to time, place, person, mood and affect Microbiology Past 72 Hours 05/01/20 Unknown Wound - Toe Gram Stain - Final 05/01/20 Unknown Wound - Toe Wound Culture - Preliminary Staphylococcus species 05/01/20 Unknown Wound - Toe Anaerobic Culture - Preliminary No growth in 48 hours. 05/01/20 Unknown Tissue - Toe Gram Stain - Final 05/01/20 Unknown Tissue - Toe Wound Culture - Final Enterobacter aerogenes 05/01/20 Unknown Tissue - Toe Anaerobic Culture - Preliminary Checking for anaerobes, further studies to follow. 04/29/20 13:00 Blood Culture (Wb) - Anticubital Right Blood Culture - Preliminary No growth in 48 hours. 04/29/20 12:55 Blood Culture (Wb) - Left Forearm Blood Culture - Preliminary No growth in 48 hours. Laboratory Results 05/01/20 : S.aureus Protein A PCR POSITIVE H, MRSA (PCR) POSITIVE H Current Medications Acetaminophen (Tylenol) 650 mg PO Q6H PRN PRN PRN Reason: Pain Score 1-10/Temp > 100.7 F Last Admin: 05/03/20 17:15 Dose: 650 mg Documented by: Albuterol Sulfate (Ventolin Aerosols) 2.5 mg INHALATION Q2H PRN PRN PRN Reason: Shortness of Breath/Wheezing Aspirin (Ecotrin) 81 mg PO DAILY@0800 [facility] Last Admin: 05/04/20 08:18 Dose: 81 mg Documented by: Atorvastatin Calcium (Lipitor) 20 mg PO QHS [facility] Last Admin: 05/03/20 21:17 Dose: 20 mg Documented by: Cyanocobalamin (Vitamin B12) 1,000 mcg PO DAILY@0800 [facility] Last Admin: 05/04/20 08:18 Dose: 1,000 mcg Documented by: Enoxaparin Sodium (Lovenox) 40 mg SC DAILY [facility] Last Admin: 05/04/20 08:18 Dose: 40 mg Documented by: Hydromorphone HCl (Dilaudid Inj) 1 mg IV Q3H PRN PRN PRN Reason: Pain Score 6-10/10 Last Admin: 05/01/20 21:26 Dose: 1 mg Documented by: Piperacillin Sod/Tazobactam (Sod 3.375 gm/ Sodium Chloride) 50 mls @ 12.5 mls/hr IV Q8 [facility] Last Infusion: 05/04/20 10:28 Dose: Infused Documented by: Vancomycin IV Pharmacy to Dose (1 ea/ Sodium Chloride) 500 mls @ 250 mls/hr IV X1 PRN; Protocol PRN Reason: Rx to Dose Sodium Chloride () 250 mls @ 15 mls/hr IV .[id number] PRN PRN Reason: Saline Flush Last Infusion: 05/04/20 11:40 Dose: Infused Documented by: Vancomycin HCl 2,000 mg/ (Sodium Chloride) 540 mls @ 250 mls/hr IV Q12H [facility] Last Infusion: 05/04/20 06:25 Dose: Infused Documented by: Lactated Ringer's () 1,000 mls @ 100 mls/hr IV .Q10H [facility] Last Infusion: 05/04/20 11:36 Dose: Infused Documented by: Melatonin (Melatonin) 3 mg PO QHS PRN PRN PRN Reason: INSOMNIA Nicotine (Nicoderm Cq (Pbkc)) 21 mg TRANSDERM. DAILY [facility] Last Admin: 05/04/20 08:19 Dose: 21 mg Documented by: Nutritional Formula (Lactose Free) (Ensure Enlive) 120 ml PO 4X/DAY [facility] Last Admin: 05/04/20 08:26 Dose: 120 ml Documented by: Ondansetron HCl (Zofran) 4 mg IV Q8H PRN PRN PRN Reason: NAUSEA/VOMITING Oxycodone HCl (Oxyir) 5 mg PO Q4H PRN PRN PRN Reason: Pain Score 4-10/10 Last Admin: 05/04/20 06:33 Dose: 5 mg Documented by: Pregabalin (Lyrica) 300 mg PO BID [facility] Last Admin: 05/04/20 08:18 Dose: 300 mg Documented by: Sodium Chloride () 10 - 40 ml IV UD PRN PRN Reason: SALINE FLUSH Last Admin: 04/29/20 22:37 Dose: 10 ml Documented by: STROKE Vital Signs/Narrative: Vital Signs Temp Pulse Resp BP Pulse Ox 05/04/20 08:55 97.9 F 74 18 137/71 H 95 Medical Necessity - Tobacco Use Smoking Status: Current every day smoker Assessment/Plan All Active Problems Cellulitis of toe of right foot (Acute) Abscess of right foot (Acute) Osteomyelitis of toe of right foot (Acute) 1. Right toe osteomyelitis with abscess s/p incision and drainage * MRI confirmed osteomyelitis * ID on board * ok for dc home, on PO bactrim x 5 days * wound culture was positive for MRSA * 2. Raynaud's disease with vasculitis: on aspirin 81mg daily. Will need to follow up with slitting machine operator on outpatient basis DVT prophylaxis: lovenox Plan : stable for discharge home from hospitalist standpoint Inpatient E&M: 42167 Subs Hosp L2
[2020-05-04 13:34] VITALS: BP 136/85; PULSE 69; RESP 18; TEMP 36.8; O2SAT 96
--- NOTE | 2020-05-07 15:21 | CASEMGMT ---
PARIS ORTIZ Discharge Follow-up Phone Call: MADDIE: Danna Strata: 3 Call Date: 05/07/20 Discharge Date: 05/06/20 Time of Call: 1520 Duration: 5 minutes Admitting Diagnosis: Cellulitis, Abscess right foot PARIS ORTIZ completed follow-up phone call after recent hospitalization. Patient states he is doing well and his daughter got him setup in an apartment. Patient states he was able to fill prescriptions without any issues. Follow-up appts scheduled prior to discharge. Patient was inquiring if he should change his dressing to his foot. PARIS ORTIZ instructed patient to call Dr. Lorenzo regarding dressing changes. Patient voiced understand and had no further questions at this time.
== END 2020-05-04 14:25 | disposition home or self-care (01) | DRG 504 ==
LOC: ED 13:03 → MS3 15:17
PROVIDERS: Family Medicine; Internal Medicine; Podiatrist; Admitting Provider Podiatrist Foot & Ankle Surgery; Emergency Provider Emergency Medicine; PCP Family Medicine; Visit Provider Student in an Organized Health Care Education/Training Program
PROC: 0Y6X0Z0 Detachment at Right 5th Toe, Complete, Open Approach (ICD-10-PCS; principal; 2020-05-01 12:15)
DX: M86.171 Other acute osteomyelitis, right ankle and foot (principal); L02.611 Cutaneous abscess of right foot; L03.115 Cellulitis of right lower limb; L03.031 Cellulitis of right toe; L97.519 Non-pressure chronic ulcer of other part of right foot with unspecified severity; I77.6 Arteritis, unspecified; A49.02 Methicillin resistant Staphylococcus aureus infection, unspecified site; R73.9 Hyperglycemia, unspecified; I73.00 Raynaud's syndrome without gangrene; G57.80 Other specified mononeuropathies of unspecified lower limb; M79.7 Fibromyalgia; F17.210 Nicotine dependence, cigarettes, uncomplicated; Z59.0 Homelessness; Z79.82 Long term (current) use of aspirin; Z79.899 Other long term (current) drug therapy; Z83.3 Family history of diabetes mellitus; Z88.0 Allergy status to penicillin
CPT/HCPCS: 36415; 73630; 73660; 73718; 76000; 80048; 80061; 80076; 80202; 82607; 82746; 83036; 83605; 85025; 87015; 87040; 87070; 87075; 87077; 87102; 87116; 87186; 87205; 87206; 87640; 87641; 88304; 88305; 88311; 93005; 93923; 97162; 97802; 99285; 99406; J7040; J7050; J7120; A4216; J2405

== ENCOUNTER 2023-05-02 21:42 | Emergency (ER) | payer OTHER, MEDICAID, SELFPAY ==
[2023-05-02 21:43] VITALS: BP 122/88; PULSE 110; RESP 18; TEMP 36.8; O2SAT 93; BMI 22.4
--- NOTE | 2023-05-02 22:19 | EX.ED.GENINJ ---
HPI History of Present Illness Chief Complaint: Bite Informant: patient Onset/Context/Timing Onset: Today Mechanism/Context: other (Dog bite) Location of pain/injuries: Right elbow and Left hand Quality of Pain: Sharp and Burning Location: Right elbow, left hand, abdomen Worsened by: Movement Relieved by: Nothing Associated Symptoms Associated Symptoms: Negative for Parasthesias, Weakness, Loss of function, Inability to ambulate, Loss of consciousness or Amnesia Narrative Narrative: Patient presents with dog bite that occurred today. Patient states he was bitten by his neighborhood pit bull. Patient states the dog was not acting inappropriately. Patient does not know who the sewer maintenance supervisor of the dog is. Patient states the dog is now with the dog pound. Patient states he has seen the dog in the neighborhood in the past and states that has not been acting abnormally. Patient states he was bitten on his right elbow, left hand, and also had some scratches on his abdomen. Patient describes pain as aching and burning. Patient states his tetanus is up-to-date. Tetanus Immunization: <5 years PFSH PFS Medical History (Updated 05/02/23 @ 23:[address] Bandar Pace DO) History of amputation of toe Home Medications pregabalin 300 mg capsule (Lyrica) 300 mg PO BID PRN Pain Score 4-10/10 11/07/15 [History Last Taken Unknown] sulfamethoxazole 800 mg-trimethoprim 160 mg tablet 1 tab PO BID #60 tabs 05/04/20 [Rx Last Taken Unknown] clindamycin HCl 300 mg capsule (Cleocin HCl) 300 mg PO Q6H #40 [facility] 05/02/23 [Rx Last Taken Unknown] doxycycline monohydrate 100 mg capsule 100 mg PO BID #20 [facility] 05/02/23 [Rx Last Taken Unknown] Allergy/AdvReac Type Severity Reaction Status Date / Time Penicillins AdvReac Vomiting Verified 05/02/23 21:42 Surgical History (Updated 05/02/23 @ 22:[address] Bandar Pace DO) History of herniorrhaphy Hx of tonsillectomy Social History Smoking Status: Current every day smoker tobacco type: cigarettes ROS ROS ED Constitutional Constitutional ED: Denies chills or fever(s) Eyes Eyes: Denies blurry vision or change in vision ENT ENT ED: Denies rhinorrhea or sore throat Cardiovascular Cardiovascular: Denies chest pain or palpitations Respiratory/Chest Respiratory/Chest: Denies cough or dyspnea Gastrointestinal Gastrointestinal: Denies nausea or vomiting Genitourinary Genitourinary ED: Denies dysuria or hematuria Musculoskeletal Musculoskeletal: Denies back pain or neck pain Integumentary Denies abscess or rash Neurologic Neurologic: Denies headache(s) or weakness Allergic/Immunologic Allergic/Immunologic ED: Denies mouth swelling or urticaria EXAM Physical Exam Const Vital Signs: 05/02/23 21:43 Temperature 98.3 F Temperature Source Temporal Pulse Rate 110 H Respiratory Rate 18 Blood Pressure 122/88 H Blood Pressure Mean 99 Pulse Ox 93 Oxygen Delivery Method Room Air Positive well nourished and well developed General Appearance ED: well developed and NAD HEENT atraumatic GI non-tender and non-distended Palpation: soft Extremity Extremity Narrative: There is a 8 cm stellate laceration over the posterior lateral aspect of the right elbow. There is moderate gapping of the wound margins. There are no foreign bodies visualized. There is no lacerations of the tendons or muscles. There is full range of motion of the right elbow. Radial pulses are equal bilaterally. There are puncture wounds noted over the left hand. There is no full-thickness laceration. There is no gapping of any wound margins. Sensation was intact to light touch bilaterally in the upper extremities. Strength is 5/5 bilaterally in the radial, median, and ulnar areas. Neuro oriented x3, CN's II-XII intact bilaterally, moves all extremities, no focal motor deficits and no sensory deficits noted Sensorium / Orientation: alert Motor Exam: strength 5/5 throughout Psych mental status grossly normal Skin Skin Narrative: There are superficial abrasions over the abdominal wall. There is no bleeding noted. PROC Procedures Lacerations Right elbow: Length: 8 cm Depth: Sub Q Shape: Stellate Prep: Sterile Conditions and Chlorhexadine Laceration repair: Irrigated, Lidocaine, Local, Skin sutures and Wound explored Irrigated (ml): 100 Number of Sutures/Narrows: 13 Suture Information: Ethilon, Simple and 4-0 MDM MDM MDM Narrative Medical decision making narrative: Since the patient is allergic to penicillins, patient was given a dose of clindamycin and doxycycline here. The wound was cleaned and irrigated with copious amounts of normal saline. The wound was anesthetized with 1% plain lidocaine locally. The wound was closed with 13 simple interrupted #4-0 nylon sutures under sterile technique. Patient tolerated the procedure well. Bacitracin dressing was applied. Patient was given prescription for doxycycline and clindamycin. Patient was instructed to keep the wound clean and dry. Patient was instructed to follow-up with his primary care physician in 7 days for wound recheck and suture removal. Patient understood and was agreeable with the plan. All questions were answered. Discharge Plan Triage Chief Complaint: Bite ED Provider: Bandar Pace Dx/Rx/DC Orders Clinical Impression: Dog bite of elbow, Laceration of right elbow Instructions: ED Dog Bite, ED Laceration: All Closures, ED Laceration Extremity Prescriptions: New clindamycin HCl [Cleocin HCl] 300 mg capsule 300 mg PO Q6H Qty: 40 0RF doxycycline monohydrate 100 mg capsule 100 mg PO BID Qty: 20 0RF No Action pregabalin [Lyrica] 300 MG capsule 300 mg PO BID PRN (Reason: Pain Score 4-10/10) sulfamethoxazole-trimethoprim 1 TABLET tablet 1 tab PO BID Qty: 60 0RF Primary Care Provider: Alphonse Roberts Referrals: Alphones Roberts MD [Primary Care Provider] - 7 Days for suture removal Disposition Disposition: Home, Self Care
[2023-05-02] MEDS: Doxycycline 100 MG CAPSULE PO (22:44)
[2023-05-02] MEDS: Lidocaine 1% (20 ml mdv) 20 ML Vial INFILT (22:44)
[2023-05-02] MEDS: Clindamycin HCl 150 MG Capsule 300 MG PO (22:44)
[2023-05-02 23:22] VITALS: BP 134/81; PULSE 82; RESP 18; O2SAT 97
== END 2023-05-02 23:25 | disposition home or self-care (01) ==
PROVIDERS: Emergency Provider Emergency Medicine; PCP Family Medicine; Visit Provider Emergency Medicine
DX: S51.011A Laceration without foreign body of right elbow, initial encounter (principal); W54.0XXA Bitten by dog, initial encounter; F17.210 Nicotine dependence, cigarettes, uncomplicated; S61.432A Puncture wound without foreign body of left hand, initial encounter
CPT/HCPCS: 12004; 99285